=== PATIENT | male | born 1935 | race Caucasian/White ===

== ENCOUNTER 2016-10-01 06:15 | Emergency (ER) | payer MEDICARE ==
[~2016-10-01] VITALS: Ht 188 cm; Wt 91.2 kg
[~2016-10-01 06:15] MED LIST: ASPI1TAB69 PO; CALC-137 PO; CITA20TA4 PO; FOSA70TA PO; HYDR-3583 PO; LIPI10TA PO; MULT-135 PO; PRIL20CA9 PO; VALS160T4 PO; VITA400T14 PO; VITA500T49 PO
[2016-10-01 06:23] VITALS: BP 138/74; PULSE 65; RESP 18; TEMP 98.4; O2SAT 96
[2016-10-01] MEDS ORDERED: CALC500T37 PO (06:42)
--- NOTE | 2016-10-01 07:14 | PD ---
HPI Chief Complaint: Foreign Body Time Seen by Provider: 07:06 Travel History International Travel<30 days: No Contact w/Intl Traveler<30days: No Traveled to known affect area: No History of Present Illness HPI The patient is a 80-year-old male that felt a growth in his throat for a proximally 4 hours. He knows it is not a foreign body, he did not swallow anything. He states the growth is approximately 1 cm in diameter. It is not blocking his airway, it does make him speak somewhat deeper but there is no difficulty breathing or nausea. He denies any fever. He does not have a history of throat cancer, thyroid cancer or other tumors around the neck. He has no trouble swallowing. The patient states he often clears his throat and has done this for years and uses Flonase spray and Hansa pills, this helps seem keep his throat clear. Dr. Owen is his director process engineering and has done normal upper endoscopies on him several times. PFSH Past Medical History Hx Anticoagulant Therapy: Yes (asa) Arthritis: Yes Autoimmune Disease: No Anxiety: Yes Depression: Yes (does not feel depressed now) Heart Rhythm Problems: No Cancer: Yes (CLL) Cardiac Catheterization: Yes (2011) Cardiovascular Problems: Yes High Cholesterol: Yes Chemotherapy: Yes Chest Pain: Yes Congestive Heart Failure: No Cerebrovascular Accident: Yes Diabetes: No Endocrine: No Gastrointestinal Disorders: Yes GERD: Yes Genitourinary: No Hepatitis: No Hiatal Hernia: No Hypertension: Yes Immune Disorder: No Kidney Stones: No Musculoskeletal: Yes Neurologic: No Psychiatric: Yes Reproductive: No Respiratory: No Radiation Therapy: No Renal Failure: No Thyroid Disease: No Ulcer: No Tetanus Vaccination: < 5 Years Influenza Vaccination: Yes Past Surgical History Abdominal Surgery: No AICD: No Arteriovenous Shunt: No Body Medical Devices: NONE Cardiac Surgery: No Ear Surgery: No Endocrine Surgery: No Eye Surgery: Yes (JUDY CATARACT REMOVED , LASIX SURGERY) Genitourinary Surgery: No Gynecologic Surgery: No Insulin Pump: No Joint Replacement: No Oral Surgery: Yes (TONSILLECTOMY/ADENOIDECTOMY) Pacemaker: No Thoracic Surgery: Yes (IMPLANTED PORT INSERTED AND REMOVED) Other Surgery: Yes (BACK SURG' S , LAST ONE 8 YRS AGO) Social History Alcohol Use: Yes (1-2 DRINK A DAY) Tobacco Use: No Substance Use: No Allergies-Medications (Allergen,Severity, Reaction): Coded Allergies: Sulfa (Verified Allergy, Severe, Anaphylaxis, 10/01/16) SWELLING IN HANDS Levaquin (Verified Allergy, Intermediate, SWELLING IN HANDS, 10/01/16) Reported Meds & Prescriptions Reported Meds & Active Scripts Active Reported Calcium Ascorbate 500 Mg Tab 500 Mg PO DAILY Aspirin 81 Mg Tabdr 81 Mg PO DAILY Vitamin D2 (Ergocalciferol) 400 Unit Tab 400 Units PO WEEKLY Vitamin B12 (Cyanocobalamin) 500 Mcg Tab Unknown Dose PO DAILY Citalopram (Citalopram Hydrobromide) 20 Mg Tab 20 Mg PO DAILY Multi Vitamin (Multiple Vitamin) 1 Tab Tab 1 Tab PO DAILY Prilosec (Omeprazole) 20 Mg Cap 40 Mg PO DAILY Valsartan-Hydrochlorothiazide 160-12.5 Mg Tab 1 Tab PO DAILY Hydrocodone-Acetaminophen 10-325 mg Tab 1 Tab PO Q4H PRN Lipitor (Atorvastatin Calcium) 10 Mg Tab 10 Mg PO HS Fosamax (Alendronate Sodium) 70 Mg Tab 70 Mg PO Q7D Review of Systems Except as stated in HPI: all other systems reviewed are Neg Physical Exam Narrative GENERAL: The patient is alert, oriented 3 in no respiratory distress. His vital signs are normal. SKIN: Focused skin assessment warm/dry. HEAD: Atraumatic. Normocephalic. EYES: Pupils equal and round. No scleral icterus. No injection or drainage. ENT: No nasal bleeding or discharge. Mucous membranes pink and moist. The patient's speech is slightly deep. He does not have any stridor in the neck. The throat is clear and the sensation of foreign body appears to be well below the level of the vocal cords. NECK: Trachea midline. No JVD. No stridor. CARDIOVASCULAR: Regular rate and rhythm. No murmur appreciated. RESPIRATORY: No accessory muscle use. Clear to auscultation. Breath sounds equal bilaterally. GASTROINTESTINAL: Abdomen soft, non-tender, nondistended. Hepatic and splenic margins not palpable. MUSCULOSKELETAL: No obvious deformities. No clubbing. No cyanosis. No edema. NEUROLOGICAL: Awake and alert. No obvious cranial nerve deficits. Motor grossly within normal limits. Normal speech. PSYCHIATRIC: Appropriate mood and affect; insight and judgment normal. Data Data Last Documented VS Vital Signs Date Time Temp Pulse Resp B/P Pulse Ox O2 Delivery O2 Flow Rate FiO2 10/01/16 06:23 98.4 65 18 138/[address] Soft Tiss Neck W Iv Cont (10/01/16 07:07) Complete Blood Count With Diff (10/01/16 07:07) Basic Metabolic Panel (Bmp) (10/01/16 07:07) MDM Medical Decision Making Medical Screen Exam Complete: Yes Emergency Medical Condition: Yes Medical Record Reviewed: Yes Differential Diagnosis Tracheal foreign body, esophageal foreign body, laryngitis, vocal cord tumor, epiglottitisextremely unlikely Narrative Course It is now 0713 and the patient is transferred to Dr. Burris. Venancio Mercedes MD October 01, 2016 07:13
[2016-10-01 07:30] VITALS: BP 118/71; PULSE 62; RESP 16; O2SAT 96
[2016-10-01 07:31] LABS: AUTOMATED NEUTROPHIL # 4.6 TH/MM3 (1.8-7.7); BASOPHIL # 0.4 TH/MM3 (0-0.2); BASOPHIL % 0.6 % (0.0-2.0); EOSINOPHIL # 0.1 TH/MM3 (0-0.4); EOSINOPHIL % 0.1 % (0.0-4.0); HEMATOCRIT 36.1 % (39.0-51.0); LYMPHOCYTE # 56.2 TH/MM3 (1.0-4.8); MEAN CELL VOLUME 92.2 FL (80.0-100.0); MEAN CORPUSCULAR HEMOGLOBIN 29.6 PG (27.0-34.0); MEAN CORPUSCULAR HGB CONC 32.2 % (32.0-36.0); MONO % 6.2 % (0.0-8.0); NEUT % 7.1 % (16.0-70.0); PLATELET COUNT 131 TH/MM3 (150-450); RED BLOOD COUNT 3.92 MIL/MM3 (4.50-5.90); WHITE BLOOD COUNT 65.4 TH/MM3 (4.0-11.0)
[2016-10-01 07:34] LABS: HEMO FLAGS AUTO DIFF
[2016-10-01 07:40] LABS: POTASSIUM 4.1 MEQ/L (3.5-5.1)
[2016-10-01 07:43] LABS: BICARBONATE 29.4 MEQ/L (21.0-32.0)
[2016-10-01 07:55] LABS: NEUTROPHIL # MANUAL DIFF 2.6 TH/MM3 (1.8-7.7); POLYS (SEG NEUTROPHILS) 4 % (16-70); WBC DIFF SAMPLE 100
[2016-10-01 07:56] LABS: SCAN/DIFF FINAL DIFF MANUAL; SMUDGE CELLS PRESENT PRESENT
[2016-10-01] MEDS ORDERED: IOHEXOL 350 MG/ML 10 ML VIAL (for RAD DIAG) IV ONE (08:35)
--- NOTE | 2016-10-01 08:49 | RADHPO ---
EXAM DATE/TIME: 10/01/2016 08:16 [facility] COMPARISON: No previous studies available for comparison. INDICATIONS : Feels like something is stuck in throat. IV CONTRAST: 75 cc Omnipaque 350 (iohexol) IV RADIATION DOSE: 12.40 CTDIvol (mGy) MEDICAL HISTORY : Cerebrovascular disease. Hypertension. Leukemia. Anti coagulant therapy. SURGICAL HISTORY : Tonsillectomy. Adenoidectomy. Orthopedic surgery. ENCOUNTER: Initial ACUITY: 1 day PAIN SCALE: 0/10 LOCATION: neck TECHNIQUE: Volumetric scanning of the neck was performed. Using automated exposure control and adjustment of th e mA and/or kV according to patient size, radiation dose was kept as low as reasonably achievable to obtain optimal diagnostic quality images. FINDINGS: NASOPHARYNX: The nasopharyngeal airway has a normal configuration. No mucosal thickening or mass is seen. OROPHARYNX: The intrinsic muscles of the tongue are symmetric. The tonsillar pillars are intact. The prevertebr al soft tissues are not thickened. LARYNX: The supraglottic, glottic, and infraglottic structures are intact. PARAPHARYNGEAL: The parapharyngeal space is intact. SALIVARY GLANDS: The parotid and submandibular glands are intact. LYMPH NODES: Multiple prominent lymph nodes in the neck largest in the left neck posterior to the submandibular gl and measures 2.3 x 1.3 cm. One anterior to the left submandibular gland measures 2.1 x 1.2 cm. One po sterior to the right submandibular gland measures 2.0 x 1.3 cm. Other smaller lymph nodes are seen bi laterally. THYROID: Minimally heterogeneous. Small nodule the left lobe is seen. BONES: Mucosal thickening in the right maxillary sinus and also on the left to a lesser degree. CONCLUSION: 1. Multiple prominent lymph nodes concerning for leukemia/lymphoma. 2. Small nodule left thyroid lobe. Duong Kothari MD on October 01, 2016 at 8:42 Board Certified Radiologist. This report was verified electronically.
[2016-10-01 09:45] VITALS: BP 144/76; PULSE 71; RESP 16; O2SAT 97
--- NOTE | 2016-10-01 09:56 | PD ---
Physical Exam Narrative Received sign out from previous team to follow up CT scan. 80yo M presents with c/o foreign body sensation in throat since 1am this morning. State it woke him up and he denies eating or choking. 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 Pt is not on any chemo or radiation now and follows with oncologist Dr. Lenz. CT neck showed multiple prominent lymph nodes concerning for leukemia/lymphoma. Small nodule left thyroid lobe. Pt has history of leukemia and informed him about the nodule in thyroid. WBC is elevated at 65,400. BMP showed mildly elevated BUN. Discussed with Dr. Lenz who is following him for his CLL and he states that no intervention needed at this time but he needs to follow up with him as outpatient. Pt has an ENT Dr. العلي that he can call to follow up with for endoscopy. Pt is able to tolerate PO and has no trouble breathing. Believe that he is stable to follow up with ENT as outpatient. Return precautions given. Data Data Last Documented VS Vital Signs Date Time Temp Pulse Resp B/P Pulse Ox O2 Delivery O2 Flow Rate FiO2 10/01/16 11:23 67 16 143/74 96 10/01/16 09:45 Room Air 10/01/16 06:[address] Soft Tiss Neck W Iv Cont (10/01/16 07:07) Complete Blood Count With Diff (10/01/16 07:07) Basic Metabolic Panel (Bmp) (10/01/16 07:07) Iohexol 350 Inj (Omnipaque 350 Inj) (10/01/16 08:35) Labs Laboratory Tests Test 10/01/16 07:20 White Blood Count 65.4 TH/MM3 Red Blood Count 3.92 MIL/MM3 Hemoglobin 11.6 GM/DL Hematocrit 36.1 % Mean Corpuscular Volume 92.2 FL Mean Corpuscular Hemoglobin 29.6 PG Mean Corpuscular Hemoglobin 32.2 % Concent Red Cell Distribution Width 14.0 % Platelet Count 131 TH/MM3 Mean Platelet Volume 6.2 FL Neutrophils (%) (Auto) 7.1 % Lymphocytes (%) (Auto) 86.0 % Monocytes (%) (Auto) 6.2 % Eosinophils (%) (Auto) 0.1 % Basophils (%) (Auto) 0.6 % Neutrophils # (Auto) 4.6 TH/MM3 Lymphocytes # (Auto) 56.2 TH/MM3 Monocytes # (Auto) 4.1 TH/MM3 Eosinophils # (Auto) 0.1 TH/MM3 Basophils # (Auto) 0.4 TH/MM3 CBC Comment AUTO DIFF Differential Total Cells 100 Counted Neutrophils % (Manual) 4 % Lymphocytes % 96 % Neutrophils # (Manual) 2.6 TH/MM3 Differential Comment FINAL DIFF MANUAL Smudge Cells PRESENT Sodium Level 141 MEQ/L Potassium Level 4.1 MEQ/L Chloride Level 106 MEQ/L Carbon Dioxide Level 29.4 MEQ/L Anion Gap 6 MEQ/L Blood Urea Nitrogen 25 MG/DL Creatinine 1.10 MG/DL Estimat Glomerular Filtration 65 ML/MIN Rate Random Glucose 100 MG/DL Calcium Level 8.8 MG/DL MDM Supervised Visit with TELMA: No Diagnosis Primary Impression: Foreign body sensation in throat Patient Instructions: General Instructions Departure Forms: Tests/Procedures Additional Instruction: Please follow up with your ENT today or earliest appointment possible. Return to the ED if you have any shortness of breath or difficulty eating. Med/Other Pt SpecificInfo: No Change to Meds Disposition: 01 DISCHARGE HOME Condition: Stable Maria Luz Burris DO October 01, 2016 09:56
[2016-10-01 11:23] VITALS: BP 143/74
[2016-11-01] MEDS ORDERED: PERC5TAB12 PO (17:20)
== END 2016-10-01 11:33 | disposition home or self-care (01) ==
LOC: PHED 06:15
DX: R09.89 Other specified symptoms and signs involving the circulatory and respiratory systems (principal); E04.1 Nontoxic single thyroid nodule; I10 Essential (primary) hypertension; E78.00 Pure hypercholesterolemia, unspecified; Z79.82 Long term (current) use of aspirin; Z85.6 Personal history of leukemia; Z87.39 Personal history of other diseases of the musculoskeletal system and connective tissue; Z86.59 Personal history of other mental and behavioral disorders; Z86.79 Personal history of other diseases of the circulatory system; Z87.19 Personal history of other diseases of the digestive system
CPT/HCPCS: 70491; 80048; 85007; 85027; 99284; Q9967

== ENCOUNTER → 2016-10-14 | Outpatient (CLI) | payer MEDICARE ==
[~2016-10-14] MED LIST changes: +AMBI5TAB PO; +ASPI81CH CHEW; +ATOR1TAB18 PO; -CALC-137 PO; +CALC500T37 PO; +CELE40TA PO; +DILT31TA PO; +HYDR-3535 PO; +MULTTAB67 PO; +PERC5TAB12 PO; +PRED10PA PO; +PRIL20TA2 PO
--- NOTE | 2016-10-14 17:37 | RADRPT ---
EXAM DATE/TIME: 10/14/2016 15:43 [facility] COMPARISON: No previous studies available for comparison. INDICATIONS : Neck and head pain. MEDICAL HISTORY : None. SURGICAL HISTORY : Fusion, lumbar. Discectomy, lumbar. ENCOUNTER: Initial ACUITY: 1 day PAIN SCORE: 6/10 LOCATION: Paraspinal TECHNIQUE: Multiplanar, multisequence MRI examination of the cervical spine was performed. FINDINGS: MRI of the cervical spine was performed. Cerebellar tonsils are in normal anatomic position. Signal intensity in the cord is normal. C2-C3: The thecal sac has a normal configuration. There is no evidence of disc herniation or spinal canal s tenosis. The neural foramina are patent bilaterally. C3-C4: There is radiographically significant spinal stenosis at C3-C4 with interspace ridging flattening the cord with moderate bilateral neural foraminal encroachment much worse on the left than the right. C4-C5: Mild uncinate ridging is present with minimal left-sided neural foraminal encroachment. C5-C6: Mild uncinate ridging is present without significant spinal stenosis or neural foraminal encroachment . C6-C7: Mild uncinate ridging is present with minimal left-sided neural foraminal encroachment. C7-T1: Mild uncinate ridging is present with mild right-sided neural foraminal encroachment. CONCLUSION: Degenerative changes in the cervical spine. There is radiographically significant spinal stenosis at C3-C4 with flattening of the high cervical cord. Signal intensity of the cord remains normal at thi s point. Navid Black MD FACR on October 14, 2016 at 16:11 Board Certified Radiologist. This report was verified electronically.
== END ==
LOC: HRAD 15:22
PROVIDERS: ATTEND Family Medicine
DX: M43.6 Torticollis (principal)
CPT/HCPCS: 72141

== ENCOUNTER → 2016-10-24 | Outpatient (CLI) | payer MEDICARE ==
[~2016-10-24] MED LIST changes: -AMBI5TAB PO; -ATOR1TAB18 PO; -CELE40TA PO; -DILT31TA PO; -HYDR-3535 PO; -PRED10PA PO
[2016-10-24 12:28] LABS: HEMATOCRIT 35.7 % (39.0-51.0); MEAN CELL VOLUME 93.7 FL (80.0-100.0); MEAN CORPUSCULAR HEMOGLOBIN 29.7 PG (27.0-34.0); MEAN CORPUSCULAR HGB CONC 31.7 % (32.0-36.0); PLATELET COUNT 264 TH/MM3 (150-450); RED BLOOD COUNT 3.81 MIL/MM3 (4.50-5.90); RED CELL DISTRIBUTION WIDTH 14.2 % (11.6-17.2); WHITE BLOOD COUNT 118.4 TH/MM3 (4.0-11.0)
[2016-10-24 12:32] LABS: BLOOD, URINE NEG (NEG); COMMENT (UR) CULT NOT INDICATED; CULTURE IF INDICATED CULT NOT INDICATED; GLUCOSE,URINE NEG (NEG); KETONE, URINE NEG (NEG); MUCUS URINE FEW /lpf (OCC); NITRITE,URINE NEG (NEG); PH, URINE 5.5 (5.0-8.5); URINE COLOR YELLOW (YELLW/STRAW)
[2016-10-24 12:36] LABS: HEMO FLAGS AUTO DIFF
[2016-10-24 12:40] LABS: APTT (PATIENT) 30.6 SEC (24.3-30.1); PROTHROMBIN TIME - PATIENT 10.7 SEC (9.8-11.6)
--- NOTE | 2016-10-24 12:41 | RADRPT ---
EXAM DATE/TIME: 10/24/2016 12:23 [facility] COMPARISON: CHEST SINGLE AP, May 24, 2015, 17:10. INDICATIONS : Evaluate for pneumonia, pneumothorax or communicable disease. Pre op neck surgery. MEDICAL HISTORY : None. SURGICAL HISTORY : None. ENCOUNTER: Initial ACUITY: 1 day PAIN SCORE: 0/10 LOCATION: Bilateral chest FINDINGS: The heart and mediastinal contours demonstrate prominence of the aortic knob and ascending aorta sugg esting mild aneurysmal dilation this is stable compared to previous dated 05/24/15. The pulmonary parenchyma demonstrates COPD changes. No suspicious lesions are seen. The visualized bony structures are grossly intact. CONCLUSION: 1. COPD changes. 2. 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 John Black MD on October 24, 2016 at 12:38 Board Certified Radiologist. This report was verified electronically.
[2016-10-24 12:57] LABS: ANION GAP 6 MEQ/L (5-15); AST (GOT) 10 U/L (15-37); BLOOD UREA NITROGEN 36 MG/DL (7-18); CHLORIDE 101 MEQ/L (98-107); GLOMERULAR FILTRATION RATE 39 ML/MIN (>89); GLUCOSE,FASTING 104 MG/DL (74-99); POTASSIUM 4.2 MEQ/L (3.5-5.1); SODIUM (NA) 135 MEQ/L (136-145)
[2016-10-24 12:58] LABS: ALT (GPT) 18 U/L (12-78)
[2016-10-24 13:00] LABS: ALKALINE PHOSPHATASE 125 U/L (45-117); TOTAL BILIRUBIN ADULT 0.5 MG/DL (0.2-1.0)
[2016-10-24 13:04] LABS: EOSINOPHILS 1 % (0-4); NEUTROPHIL # MANUAL DIFF 5.9 TH/MM3 (1.8-7.7); POLYS (SEG NEUTROPHILS) 5 % (16-70); WBC DIFF SAMPLE 200
[2016-10-24 13:06] LABS: SLIDE REVIEW ND; SMUDGE CELLS PRESENT PRESENT
[2016-10-24 13:07] LABS: SCAN/DIFF FINAL DIFF MANUAL
--- NOTE | 2016-10-25 20:01 | EKG ---
Date Performed: 10/24/2016 Time Performed: 12:03:25 PTAGE: 80 years EKG: Sinus rhythm RIGHT BUNDLE BRANCH BLOCK LEFT ANTERIOR FASCICULAR BLOCK ABNORMAL ECG Compared to the PREVIOUS TRACING from 05/20/15, no significant change DOCTOR: Alex Navarro Interpretating Date/Time 10/25/2016 20:00:45
== END ==
LOC: CPRE 11:16
PROVIDERS: ATTEND Neurological Surgery
DX: Z01.810 Encounter for preprocedural cardiovascular examination (principal); M47.12 Other spondylosis with myelopathy, cervical region; M50.30 Other cervical disc degeneration, unspecified cervical region; M48.02 Spinal stenosis, cervical region; R94.31 Abnormal electrocardiogram [ECG] [EKG]; Z01.812 Encounter for preprocedural laboratory examination; Z01.818 Encounter for other preprocedural examination; Z79.01 Long term (current) use of anticoagulants
CPT/HCPCS: 36415; 71020; 80053; 81001; 85007; 85027; 85610; 85730; 93005

== ENCOUNTER 2016-10-27 06:05 | Observation (INO) | payer MEDICARE ==
--- NOTE | 2016-10-26 18:04 | MH ---
cc: BRIGETTE ALVARADO M.D. DATE OF ADMISSION: 10/27/2016 ADMITTING DIAGNOSIS Cervical spinal stenosis. HISTORY OF PRESENT ILLNESS This is a 80-year-old male who is well-known to us. He has previously undergone an L1-L2 and L2-L3 transforaminal interbody fusion with cage and pedicle screw fixation on 05/19/15. He was doing well he states until his neck went out on him on October 08, 2016 and he developed low back pain. The patient states three days later he went to physical therapy and had traction which made his neck pain worse. The neck pain continued to progressively get worse and he had an MRI scan which revealed cervical spinal stenosis. He states when he had the pain initially it was radiating into the upper extremities although he is unsure of the distribution, and he states at this point it has stopped. He denies any paresthesias in the upper extremities. He denies any weakness in the upper extremities. He has felt off balance for the last week although it has been better in the last [id number] days. He denies any increase in urinary frequency and states that he has had urinary frequency on a chronic basis. Prior to his neck pain developing, he had a couple weeks of painful swallowing and went to the emergency room and was referred to Gastroenterology and had endoscopy done and was found to have esophageal Jeni infection. He has undergone treatment for this. PAST MEDICAL HISTORY Past medical history is significant for - 1. Leukemia. 2. Hypertension. 3. Hyperlipidemia. 4. 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 5. He has previously undergone an L1-L2 and L2-L3 transforaminal interbody fusion with cage and pedicle screw fixation on 05/19/15. 6. He has also had previous lumbar spine surgery by Dr. Douglas in 1990. CURRENT MEDICATIONS 1. Calcium with vitamin D p.o. daily. 2. Diovan 40 mg three days a week. 3. Lipitor 10 mg three days a week. 4. Flexeril 10 mg one-half tablet q.6 hours p.r.n. muscle spasms. 5. Percocet 10/325 one-to-two tablets q.8 hours p.r.n. pain. 6. Fluticasone propionate 50 mcg nasal spray two sprays each nostril daily. 7. Citalopram him p.o. daily. ALLERGIES TO MEDICATIONS HE IS ALLERGIC TO SULFA AND LEVAQUIN. FAMILY HISTORY His father is at 89 years old of natural causes. His mother is at 44 years old of a myocardial infarction. A brother is at 21 years old of a motor vehicle accident. Another brother is alive at 60 years old and well. Another brother is at 21 years old of a motor vehicle accident. He has another brother who is alive at 58 years old and has throat cancer. SOCIAL HISTORY He is retired. He is . He has four children two of them are step-children. He does not smoke, he quit in 1986. He drinks 0-2 alcoholic beverages daily. REVIEW OF SYSTEMS CONSTITUTIONAL: He denies any fever or chills. EARS, NOSE AND THROAT: No pharyngitis. Positive for sinus drainage. CARDIOVASCULAR: No chest pain or palpitations. RESPIRATORY: No cough or shortness of breath. GENITOURINARY: No dysuria or hematuria. MUSCULOSKELETAL: Positive for neck pain. SKIN: No rashes or pruritus. NEUROLOGIC: No difficulty with speech or memory. GASTROINTESTINAL: No nausea, vomiting or abdominal pain. PSYCHIATRIC: No anxiety or depression symptoms. ENDOCRINE: No polyuria or polydipsia. HEMATOLOGIC: Positive for bruising. No bleeding tendencies. PHYSICAL EXAMINATION HEAD: Normocephalic, atraumatic. NECK: Supple. No carotid bruits heard on auscultation. LUNGS: Clear to auscultation bilaterally. HEART: Regular, rate and rhythm. Normal S1, S2. ABDOMEN: Soft, positive bowel sounds. SKIN: Reveals no cyanosis or erythema. He had mild ecchymosis on the left forearm. MUSCULOSKELETAL: He has 5/5 strength in the upper and lower extremities. He ambulates without any assistive device. He has a soft cervical collar in place. NEUROLOGIC: He is awake, alert and oriented. Cranial nerves II-XII appear grossly intact. His speech is fluent. Comprehension is good. Reflexes are brisk in the upper and lower extremities. There is no Surendra or clonus response bilaterally. IMPRESSION A 80-year-old male with complaints of neck pain and right occipital headaches radiating down to the forehead and scalp tenderness. 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 PLAN We have discussed treatment options with the patient which include continued conservative treatment measures versus surgical intervention. We have discussed the procedure as well as the risks, benefits, alternatives and recovery time in great detail with the patient. We have discussed the risks involved with surgery include but not limited to bleeding, infection, muscle weakness, voice hoarseness, difficulty swallowing, heart attack, stroke, blood clots, non-fusion, scar tissue formation among others. We have also discussed with the patient and his medical office secretary and primary care physician the risk of infection and healing given his leukemia and his current high white blood cell count. The patient states that he understands these risks and he wishes to proceed and he was therefore scheduled accordingly. DICTATED BY: Duong Bean PA-C MD DOMINIC Vizcarra/ELZBIETA /4:54 PM /5:17 PM
[~2016-10-27] VITALS: Ht 188 cm; Wt 91.4 kg
[~2016-10-27 06:05] MED LIST changes: -ASPI81CH CHEW; -MULTTAB67 PO; -PERC5TAB12 PO; -PRIL20TA2 PO
[2016-10-27] MEDS ORDERED: ACETAMINOPHEN 1000 MG/100 ML VIAL IV ONE (06:29)
[2016-10-27] MEDS ORDERED: KETAMINE HCL 500 MG/5 ML VIAL ONE (06:29)
[2016-10-27] MEDS ORDERED: HYDROmorphone HCL PF 2 MG/ML VIAL ONE (06:29)
[2016-10-27] MEDS ORDERED: CHLORHEXIDINE GLUCONATE 2 % 1 PACK (2 CLOTHS) TOPICAL PRN (06:30)
[2016-10-27] MEDS ORDERED: INSULIN HUMAN REGULAR 1,000 UNITS/10 ML VIAL SQ PRN (06:30)
[2016-10-27] MEDS ORDERED: ceFAZolin 2 GM PREMIX 50 ML IV SCH (06:30)
[2016-10-27] MEDS ORDERED: LACTATED RINGER'S 1000 ML IV PRN (06:30)
[2016-10-27] MEDS ORDERED: SODIUM CHLORID 0.9% 500 ML IV PRN (06:30)
[2016-10-27] MEDS ORDERED: POVIDONE IODINE 5% (ANTISEPSIS KIT) 4 APPLICATIONS EACH NARE PRN (06:30)
[2016-10-27] MEDS ORDERED: METOPROLOL TARTRATE 25 MG TAB PO PRN (06:30)
[2016-10-27] MEDS ORDERED: ASPI81CH CHEW (06:39)
[2016-10-27] MEDS ORDERED: PRIL20TA2 PO (06:39)
[2016-10-27] MEDS ORDERED: MULTTAB67 PO (06:39)
[2016-10-27 06:44] VITALS: BP 111/55; PULSE 81; RESP 16; TEMP 97; O2SAT 96
[2016-10-27] MEDS ORDERED: GELFOAM SIZE 100 ONE (07:15)
[2016-10-27] MEDS ORDERED: THROMBIN (TOPICAL) 5,000 UNIT VIAL ONE (07:15)
[2016-10-27] MEDS ORDERED: BUPIVACAINE/EPINEPHRINE 0.5% PF 30 ML VIAL ONE (07:15)
[2016-10-27] MEDS ORDERED: fentaNYL CITRATE 250 MCG/5 ML AMP ONE (08:07)
[2016-10-27] MEDS ORDERED: FAMOTIDINE 20 MG/2 ML VIAL ONE (08:07)
[2016-10-27] MEDS ORDERED: MIDAZOLAM HCL 2 MG/2 ML VIAL ONE (08:07)
[2016-10-27] MEDS ORDERED: ceFAZolin INJ 1,000 MG VIAL ONE (08:26)
[2016-10-27] MEDS ORDERED: PROPOFOL 200 MG/20 ML AMP IV ONE (10:23)
[2016-10-27] MEDS ORDERED: PHENYLEPH/NS 1000 MCG/10 ML SYR IV ONE (10:24)
[2016-10-27] MEDS ORDERED: NEOSTIGMINE 3 MG/3 ML SYR IV ONE (10:24)
[2016-10-27] MEDS ORDERED: ONDANSETRON HCL 4 MG/2 ML VIAL IV PUSH ONE (10:24)
[2016-10-27] MEDS ORDERED: ePHEDrine/NS 25 MG/5 ML SYR IV ONE (10:24)
[2016-10-27] MEDS ORDERED: NORMOSOL R INJ 1,000 ML IV ONE (10:25)
[2016-10-27] MEDS ORDERED: DO NOT ADM ANY ANTICOAGULANT DRUGS PRN (11:00)
[2016-10-27] MEDS ORDERED: NS + KCL 20 MEQ INJ 1,000 ML IV SCH (11:25)
[2016-10-27] MEDS ORDERED: MORPHINE SULFATE 4 MG/ML INJ IV PRN (11:30)
[2016-10-27] MEDS ORDERED: RESP: ALBUTEROL 2.5 MG/3 ML NEB (PRN) NEB (11:30)
[2016-10-27] MEDS ORDERED: ZOLPIDEM TARTRATE 5 MG TAB PO PRN (11:30)
[2016-10-27] MEDS ORDERED: cloNIDine HCL 0.1 MG TAB PO PRN (11:30)
[2016-10-27] MEDS ORDERED: ALENDRONATE SODIUM 70 MG TAB PO SCH (11:30)
[2016-10-27] MEDS ORDERED: ALUMINUM/MAGNESIUM/SIMETH 30 ML CUP PO PRN (11:30)
[2016-10-27] MEDS ORDERED: NON-FORMULARY DRUG (Valsartan-Hydrochlorothiazide 1 TAB) PO SCH (11:30)
[2016-10-27] MEDS ORDERED: ACETAMINOPHEN/HYDROcodone 325 MG/10 MG TAB PO PRN (11:30)
[2016-10-27] MEDS ORDERED: CYCLOBENZAPRINE HCL 10 MG TAB PO PRN (11:30)
[2016-10-27] MEDS ORDERED: ONDANSETRON HCL 4 MG/2 ML VIAL IV PRN (11:30)
[2016-10-27] MEDS ORDERED: ACETAMINOPHEN 325 MG TAB PO PRN (11:30)
[2016-10-27] MEDS ORDERED: SODIUM CHLORIDE 0.9% FLUSH 10 ML FLUSH IV FLUSH PRN (11:30)
[2016-10-27] MEDS ORDERED: ERGOCALCIFEROL 400 UNIT PO SCH (11:30)
[2016-10-27] MEDS ORDERED: MAGNESIUM HYDROXIDE SUSP 30 ML CUP PO PRN (11:30)
[2016-10-27] MEDS ORDERED: MENTHOL LOZENGE BUCCAL PRN (11:30)
--- NOTE | 2016-10-27 11:30 | PD.OP ---
cc: Jonathan Person MD; Favio Lenz MD Operative Report Date of Surgery: Oct 27, 2016 Preoperative Diagnosis: Neck pain with associated cervical myelopathy from a C3-4 disc osteophyte complex with spinal stenosis and cord compression Postoperative Diagnosis: Same Procedure: Anterior cervical C3-4 microdiscectomy with interbody fusion; anterior C3-4 cervical plate placement; C3-4 interbody cage placement; microsurgical technique Anesthesia: Gen. endotracheal by Slime Padron Surgeon: Matt Rodriguez M.D. Unhairing Machine Operator(s): Margy Perez Operation and Findings: Following administration of general endotracheal anesthesia with the neck maintained neutral position using Lansing collar, the patient received Ancef 2 grams and Decadron 4 mg intravenously. Sequential compression devices were placed in supine position on a Anthony table and all pressure points adequately padded. The head secured in a donut and anterior cervical region then shaved and prepped with Chloraprep and sterilely draped with Ioban along with the usual sterile draping. A transverse skin incision on the left side of the neck was then made after infiltrating the skin with 0.5% Marcaine with epinephrine solution extending down through the platysma. At the anterior border of the sternocleidomastoid further dissection was undertaken developing a plane between the carotid sheath laterally and the trachea esophagus medially. The prevertebral fascia was exposed and dissected out. The medial attachments of the longus colli muscles were detached and a self-retaining retractor used for exposure. The C3-4 disc space was localized with a marking the disc space and using lateral fluoroscopy. [place] distraction screws 14 mm length were placed one in the C3 and one in the C4 body interbody distraction and exposure. There was significant disc degeneration with disc height collapse and anterior osteophytes noted at the C6-7 level and the osteophytes were resected with a Leksell and annulus incised with a 15 blade and further dissection undertaken using microtechnique with microscope magnification. Diskectomy was undertaken with pituitaries and the endplates were also decorticated with curettes and drill bit. And more posteriorly there was disk osteophyte complex compressing the thecal sac along with a significant uncovertebral joint hypertrophy with foraminal stenosis which was decompressed along with removal of the posterior longitudinal ligament. The foramen were decompressed bilaterally using a Kerrison's and palpation with a nerve hook, the exiting nerve roots were felt to be free. The area was then copiously irrigated. I then placed a Peek cage packed with local autograft bone at the C3 -4 interspace under fluoroscopy guidance. [place] distraction pins were removed and the holes plugged with Gelfoam for hemostasis. In order to facilitate the fusion and provide stabilization, a Precision spine cervical plate was then placed with two 14 mm variable angle screws in the C3 body and two 14 mm fixed angle screws in the C4 body. The plate screw locking mechanism was then engaged. AP and lateral fluoroscopy confirmed good placement of the construct and the retractor was then removed. Muscular bleeding points were cauterized with bipolar cautery and Gelfoam was then also used for hemostasis which was removed. The platysma was then approximated using 3-0 Vicryl interrupted stitches and 3-0 Vicryl subcuticular stitch also placed in an interrupted fashion, and final skin closure was with Mastisol and Steri-Strips. Sterile dressing was then applied. The patient was then extubated and taken to the recovery room. There were no intraoperative complications and all sponge and needle counts were correct at the end of procedure. Estimated blood loss was about 50 cc. The patient did undergo intraoperative neurologic monitoring which remained stable throughout the surgery. Matt Rodriguez MD Oct 27, 2016 11:30
--- NOTE | 2016-10-27 11:37 | RADRPT ---
EXAM DATE/TIME: 10/27/2016 08:09 [facility] COMPARISON: No previous studies available for comparison. INDICATIONS : Post-op C3-C4 anterior cervical fusion. MEDICAL HISTORY : None. SURGICAL HISTORY : None. ENCOUNTER: Subsequent ACUITY: 1 day PAIN SCORE: Non-responsive. LOCATION: neck FINDINGS: Status post anterior cervical fusion at C3-C4. Alignment is anatomic. CONCLUSION: Anatomic alignment. Navid Black MD FACR on October 27, 2016 at 11:34 Board Certified Radiologist. This report was verified electronically.
--- NOTE | 2016-10-27 11:37 | RADRPT ---
EXAM DATE/TIME: 10/27/2016 08:09 [facility] COMPARISON: No previous studies available for comparison. INDICATIONS : C3-C4 anterior cervical fusion. Level localization. MEDICAL HISTORY : None. SURGICAL HISTORY : None. ENCOUNTER: Subsequent ACUITY: 1 day PAIN SCORE: Non-responsive. LOCATION: neck FINDINGS: Metallic probe is directed at C3-C4. CONCLUSION: Probe as above. Navid Black MD FACR on October 27, 2016 at 11:35 Board Certified Radiologist. This report was verified electronically.
[2016-10-27] MEDS ORDERED: LACTATED RINGER'S 1000 ML INJ 1,000 ML IV ONE (12:00)
[2016-10-27] MEDS ORDERED: SODIUM CHLORID 0.9% 500 ML INJ 500 ML IV ONE (13:30)
[2016-10-27 13:50] VITALS: BP 96/45; PULSE 81; RESP 18; TEMP 97.2; O2SAT 98
[2016-10-27 20:00] VITALS: BP 103/53; PULSE 82; RESP 18; TEMP 97.2; O2SAT 96
[2016-10-27] MEDS: DOCUSATE SODIUM 100 MG CAP PO SCH (20:24)
[2016-10-27] MEDS ORDERED: ATORVASTATIN 10 MG TAB PO SCH (21:00)
[2016-10-27] MEDS: SODIUM CHLORIDE 0.9% FLUSH 10 ML FLUSH IV FLUSH SCH (21:00)
[2016-10-28] VITALS: BP 113/58; PULSE 79; RESP 18; TEMP 97.9; O2SAT 94
[2016-10-28 04:00] VITALS: BP 117/53; PULSE 75; RESP 16; TEMP 96.3; O2SAT 95
[2016-10-28] MEDS: ACETAMINOPHEN/HYDROcodone 325 MG/10 MG TAB PO PRN ×3 (05:51→15:04)
[2016-10-28 07:14] VITALS: BP 132/75; PULSE 105; RESP 18; TEMP 96.7; O2SAT 98
[2016-10-28] MEDS ORDERED: MULTIVITAMIN TAB PO SCH (09:00)
[2016-10-28] MEDS ORDERED: PANTOPRAZOLE SOD 40 MG DELAYED RELEASE TAB PO SCH (09:00)
[2016-10-28] MEDS ORDERED: HYDROCHLOROTHIAZIDE 12.5 MG CAP PO SCH (09:00)
[2016-10-28] MEDS ORDERED: NON-FORMULARY DRUG (Calcium Ascorbate 500 MG) PO SCH (09:00)
[2016-10-28] MEDS ORDERED: CITALOPRAM HYDROBROMIDE 20 MG TAB PO SCH (09:00)
[2016-10-28] MEDS ORDERED: VALSARTAN 160 MG TAB PO SCH (09:00)
[2016-10-28] MEDS ORDERED: ASPIRIN 81 MG CHEW TAB CHEW SCH (09:00)
[2016-10-28] MEDS: DOCUSATE SODIUM 100 MG CAP PO SCH (09:19)
[2016-10-28] MEDS: SODIUM CHLORIDE 0.9% FLUSH 10 ML FLUSH IV FLUSH SCH (09:21)
--- NOTE | 2016-10-28 10:46 | HHI.NSPN ---
(Duong Arias) History Chief Complaint: Neck pain. (Duong Arias) Interval History 10/28/16: Pt awake and alert. States neck pain improved and now more localized to the right side of his neck but not extending into the head or shoulder. He has voice hoarseness but no pain. He is able to swallow water without difficulty. Pt wants to go home. (Duong Arias) Review of Systems General: Negative for: fever, chills, insomnia Respiratory: Negative for: shortness of breath, cough, sputum Cardiovascular: Negative for: chest pain Gastrointestinal: Negative for: nausea, vomitting, diarrhea, constipation ( Duong Arias) Exam Results Vital Signs Date Time Temp Pulse Resp B/P Pulse Ox O2 Delivery O2 Flow Rate FiO2 10/28/16 07:14 96.7 105 18 132/75 98 10/27/16 13:15 Nasal Cannula 2 Intake and Output 10/27/16 10/27/16 10/28/16 08:00 16:00 00:00 Intake Total 3295 ml 780 ml Output Total 75 ml Balance 3220 ml 780 ml (Duong Arias) Physical Examination Resp: CTA bilaterally Heart: NSR no murmurs Abd: Soft positive bs Skin: No cyanosis or erythema. Incision clean and dry. Mild ecchymosis around incision. No palpable fluid collections Muscle: Moves all 4 extremities well. Neuro: Pt awake and alert. Follows commands well. Speech appropriate but hoarse. (Duong Arias) Lab, Micro, Other Results Last Impressions Cervical Spine X-Ray 10/27/16 0000 Signed Impressions: Service Date/Time: Thursday, October 27, 2016 08:09 - CONCLUSION: Probe as above. Navid Black MD FACR 10/27/16 10/27/16 10/28/16 15:00 23:00 07:00 Intake Total 3295 ml 780 ml 480 ml Output Total 75 ml Balance 3220 ml 780 ml 480 ml Intake Oral 780 ml 480 ml IV Total 1295 ml Other 2000 ml Output Urine Total 25 ml Estimated Blood Loss 50 ml # Voids 1 6 4 # Bowel Movements 0 0 (Duong Arias) Medical Decision Making Impression and Plan A: 80 y/o M s/p C3/C4 anterior cervical fusion with interbody cage and cervical plate placement. P: Discharge pt home per his request. Follow up with me in two weeks for incision check. Follow up with Dr. Lenz and pcp as directed (Duong Arias) Attending Statement The exam, history, and the medical decision-making described in the above note were completed with the assistance of the mid-level provider. I reviewed and agree with the findings presented. I attest that I had a [id number] encounter with the patient on the same day, and personally performed and documented my assessment and findings in the medical record. (Matt Rodriguez MD) Duong Arias Oct 28, 2016 10:46 Matt Rodriguez MD Oct 28, 2016 11:28
[2016-10-28] MEDS ORDERED: HYDR-3583 PO (10:52)
[2016-10-28 11:24] VITALS: BP 95/47; PULSE 71; RESP 18; TEMP 95.8; O2SAT 94
[2016-10-28] MEDS ORDERED: SODIUM CHLORID 0.9% 500 ML INJ 500 ML IV ONE (11:30)
[2016-10-28 15:03] VITALS: BP 121/68
[2016-11-01] MEDS ORDERED: PERC5TAB12 PO (17:20)
== END 2016-10-28 15:39 | disposition home or self-care (01) ==
LOC: HSDC 06:05 → HSDI 11:28 → N06B 13:57
PROVIDERS: ADMIT Neurological Surgery; ATTEND Neurological Surgery
DX: M48.02 Spinal stenosis, cervical region (principal); M50.01 Cervical disc disorder with myelopathy, high cervical region; M25.78 Osteophyte, vertebrae; I10 Essential (primary) hypertension; E78.5 Hyperlipidemia, unspecified; Z88.1 Allergy status to other antibiotic agents; Z88.2 Allergy status to sulfonamides; Z87.891 Personal history of nicotine dependence; Z98.1 Arthrodesis status; Z85.6 Personal history of leukemia; Z92.3 Personal history of irradiation; Z86.73 Personal history of transient ischemic attack (TIA), and cerebral infarction without residual deficits
CPT/HCPCS: 20936; 22551; 22853; 72020; 72040; 76000; 94150; 96360; C1713; G0378; J0131; J0690; J1170; J2250; J2370; J2405; J2710; J3010; J3480; J7040; J7120

== ENCOUNTER 2016-11-15 17:19 | Inpatient (IN) | payer MEDICARE ==
[2016-11-15] VITALS (23 sets, daily range): BP systolic 75–121; BP diastolic 41–73; PULSE 64–160; RESP 13–24; TEMP 97.8–98.1; O2SAT 94–100
[~2016-11-15] VITALS: Ht 188 cm; Wt 87.5 kg
[~2016-11-15 17:19] MED LIST changes: -ASPI1TAB69 PO; +ASPI81CH CHEW; -MULT-135 PO; +MULTTAB67 PO; +PERC5TAB12 PO; -PRIL20CA9 PO; +PRIL20TA2 PO
--- NOTE | 2016-11-15 17:35 | PD ---
HPI . Palpitations Chief Complaint: Cardiac Complaint Time Seen by Provider: 17:26 Travel History International Travel<30 days: No Contact w/Intl Traveler<30days: No History of Present Illness HPI Patient presents with a 2 day history of palpitations. He states that this is been associated with hypotension and profound weakness. No exacerbating or relieving factors. No associated chest pain. No previous similar history. 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) Neurologic: No (TIA 05/2016) Psychiatric: No Reproductive: No Respiratory: No Radiation Therapy: No Renal Failure: No Thyroid Disease: No Ulcer: No Past Surgical History Abdominal Surgery: No AICD: No Arteriovenous Shunt: No Body Medical Devices: NONE Cardiac Surgery: No Ear Surgery: No Endocrine Surgery: No Eye Surgery: Yes (JUDY CATARACT REMOVED , LASIX SURGERY) Genitourinary Surgery: No Gynecologic Surgery: No Insulin Pump: No Joint Replacement: No Oral Surgery: Yes (TONSILLECTOMY/ADENOIDECTOMY) Pacemaker: No Thoracic Surgery: Yes (IMPLANTED PORT INSERTED AND REMOVED) Other Surgery: Yes (BACK SURG' S , LAST ONE 8 YRS AGO) Social History Alcohol Use: Yes (1-2 DRINK A DAY) Tobacco Use: No Substance Use: No Allergies-Medications (Allergen,Severity, Reaction): Coded Allergies: Sulfa (Verified Allergy, Severe, Anaphylaxis, 10/24/16) SWELLING IN HANDS Levaquin (Verified Allergy, Intermediate, SWELLING IN HANDS, 10/24/16) Reported Meds & Prescriptions Reported Meds & Active Scripts Active Hydrocodone-Acetaminophen 10-325 mg Tab 1 Tab PO Q4H PRN Reported Prednisone (21) 10 mg tab Dose Pack (Prednisone) 10 Mg Pack 10 Mg PO DIRECTED Multiple Vitamin 1 Tab 1 Tab PO DAILY Aspirin 81 Mg Chew 81 Mg CHEW DAILY Calcium Ascorbate 500 Mg Tab 500 Mg PO DAILY Vitamin D2 (Ergocalciferol) 400 Unit Tab 400 Units PO WEEKLY Vitamin B12 (Cyanocobalamin) 500 Mcg Tab Unknown Dose PO DAILY Valsartan-Hydrochlorothiazide 160-12.5 Mg Tab 1 Tab PO 3XWEEK ,W,F Lipitor (Atorvastatin Calcium) 10 Mg Tab 10 Mg PO HS M,,F Review of Systems Except as stated in HPI: all other systems reviewed are Neg General / Constitutional: No: Fever, Chills Cardiovascular: Positive: Palpitations, Tachycardia, No: Chest Pain or Discomfort Neurologic: Positive: Weakness, Dizziness Physical Exam Narrative GENERAL: Awake and alert. SKIN: Warm and dry. HEAD: Atraumatic. Normocephalic. EYES: Pupils equal and round. Extraocular movements intact. ENT: No nasal bleeding or discharge. Mucous membranes pink and moist. NECK: Trachea midline. Steri-Strips on the left side of his neck. The wound is clean with no redness, discharge, bleeding. CARDIOVASCULAR: Irregularly irregular rate and rhythm with a rate of about 180. RESPIRATORY: No accessory muscle use. Lungs are clear with good air movement throughout. GASTROINTESTINAL: Abdomen soft, non-tender, nondistended. MUSCULOSKELETAL: No obvious deformities. No edema. NEUROLOGICAL: Awake and alert. No obvious cranial nerve deficits. Motor grossly within normal limits. Normal speech. PSYCHIATRIC: Appropriate mood and affect; insight and judgment normal. Data Data Last Documented VS Vital Signs Date Time Temp Pulse Resp B/P Pulse Ox O2 Delivery O2 Flow Rate FiO2 11/15/16 18:48 68 18 93/50 98 Room Air 11/15/16 17:30 97.8 Orders Ecg Monitoring (11/15/16 17:31) Blood Pressure (11/15/16 17:31) Iv Access Insert/Monitor (11/15/16 17:31) Oximetry (11/15/16 17:31) Vital Signs (11/15/16 17:31) Diltiazem Inj (Cardizem Inj) (11/15/16 17:45) Sodium Chloride 0.9% Flush (Ns Flush) (11/15/16 17:45) Basic Metabolic Panel (Bmp) (11/15/16 17:32) Ckmb (Isoenzyme) Profile (11/15/16 17:32) Complete Blood Count With Diff (11/15/16 17:32) D-Dimer (11/15/16 17:32) Magnesium (Mg) (11/15/16 17:32) Prothrombin Time / Inr (Pt) (11/15/16 17:32) Act Partial Throm Time (Ptt) (11/15/16 17:32) Troponin I (11/15/16 17:32) Chest, Single Ap (11/15/16 17:32) Bilateral Bp Monitoring (11/15/16 17:32) Oxygen Administration (11/15/16 17:32) Sodium Chloride 0.9% Flush (Ns Flush) (11/15/16 17:45) Thyroid Stimulating Hormone (11/15/16 17:32) Sodium Chlor 0.9% 250 Ml Inj (Ns 250 Ml (11/15/16 17:45) Sodium Chlor 0.9% 250 Ml Inj (Ns 250 Ml (11/15/16 18:15) Heparin Infusion BINTA.Q1H (11/15/16 18:18) Heparin Inj (Heparin Inj) (11/15/16 18:30) Heparin Inj (Heparin Inj) (11/16/16 00:30) Heparin Inj (Heparin Inj) (11/16/16 00:30) Heparin-D5w Inj (Heparin-D5w Inj) (11/15/16 18:30) Cbc No Diff, Includes Plts (11/18/16 06:00) Act Partial Throm Time (Ptt) (11/16/16 01:18) Occult Blood (Hemoccult) Stool (11/15/16 18:18) Aspirin Chew (Aspirin Chew) (11/15/16 18:30) Sodium Chlor 0.9% 1000 Ml Inj (Ns 1000 M (11/15/16 18:30) Diltiazem Inj (Cardizem Inj) (11/15/16 19:00) Sodium Chloride 0.9% Flush (Ns Flush) (11/15/16 19:00) Diltiazem Inj (Cardizem Inj) (11/15/16 19:30) Admit To Inpatient (11/15/16 ) Vital Signs (Adult) Q4H (11/15/16 18:56) Activity Oob With Assistance (11/15/16 18:56) Nursing Techn / Telemetry .CONTINUOUS (11/15/16 18:56) Diet Heart Healthy (11/15/16 Dinner) Sodium Chloride 0.9% Flush (Ns Flush) (11/15/16 19:00) Sodium Chloride 0.9% Flush (Ns Flush) (11/15/16 21:00) Acetaminophen (Tylenol) (11/15/16 19:00) Ondansetron Inj (Zofran Inj) (11/15/16 19:00) Basic Metabolic Panel (Bmp) (11/16/16 06:00) Complete Blood Count With Diff (11/16/16 06:00) Troponin I (11/15/16 22:00) Troponin I (11/16/16 04:00) Naloxone Inj (Narcan Inj) (11/15/16 19:00) Docusate Sodium-Senna (María Elena-Colace) (11/15/16 21:00) Magnesium Hydroxide Liq (Milk Of Magnesi (11/15/16 19:00) Sennosides (Senokot) (11/15/16 19:00) Bisacodyl Supp (Dulcolax Supp) (11/15/16 19:00) Lactulose Liq (Lactulose Liq) (11/15/16 19:00) Inpatient Certification (11/15/16 ) Aspirin Ec (Ecotrin Ec) (11/16/16 09:00) Atorvastatin (Lipitor) (11/15/16 19:00) Consult Cardiology (11/15/16 ) Labs Laboratory Tests Test 11/15/16 17:27 White Blood Count 190.6 TH/MM3 Red Blood Count 3.99 MIL/MM3 Hemoglobin 12.6 GM/DL Hematocrit 37.8 % Mean Corpuscular Volume 94.8 FL Mean Corpuscular Hemoglobin 31.5 PG Mean Corpuscular Hemoglobin 33.3 % Concent Red Cell Distribution Width 14.4 % Platelet Count 405 TH/MM3 Mean Platelet Volume 6.5 FL Neutrophils (%) (Auto) % Lymphocytes (%) (Auto) % Monocytes (%) (Auto) % Eosinophils (%) (Auto) % Basophils (%) (Auto) % Neutrophils # (Auto) TH/MM3 Lymphocytes # (Auto) TH/MM3 Monocytes # (Auto) TH/MM3 Eosinophils # (Auto) TH/MM3 Basophils # (Auto) TH/MM3 CBC Comment AUTO DIFF Differential Total Cells 200 Counted Neutrophils % (Manual) 13 % Lymphocytes % 86 % Monocytes % 2 % Neutrophils # (Manual) 24.8 TH/MM3 Differential Comment FINAL DIFF MANUAL Platelet Estimate NORMAL Platelet Morphology Comment NORMAL Prothrombin Time 10.7 SEC Prothromb Time International 1.0 RATIO Ratio Activated Partial 24.8 SEC Thromboplast Time D-Dimer Quantitative (PE/DVT) 0.32 MG/L FEU Sodium Level 143 MEQ/L Potassium Level 3.8 MEQ/L Chloride Level 108 MEQ/L Carbon Dioxide Level 25.1 MEQ/L Anion Gap 10 MEQ/L Blood Urea Nitrogen 42 MG/DL Creatinine 1.40 MG/DL Estimat Glomerular Filtration 49 ML/MIN Rate Random Glucose 104 MG/DL Calcium Level 8.3 MG/DL Magnesium Level 2.5 MG/DL Total Creatine Kinase 30 U/L Troponin I 0.34 NG/ML Thyroid Stimulating Hormone 1.760 uIU/ML 3rd Gen [facility] Medical Decision Making Medical Screen Exam Complete: Yes Emergency Medical Condition: Yes Medical Record Reviewed: Yes (medical history is significant for hypertension, CLL, hyperlipidemia and degenerative cervical and spinal stenosis.) Interpretation(s) EKG shows atrial fibrillation with a ventricular response of 163. Going through his old EKGs, he has not been in atrial fibrillation before. Differential Diagnosis Differential diagnosis of tachycardia includes but is not limited to PSVT, atrial fibrillation with a rapid ventricular response, sinus tachycardia (due to hypovolemia, anemia, thyrotoxicosis, PE) Narrative Course Patient presents with palpitations associated with hypotension and dizziness. He is in atrial fibrillation with a rapid ventricular response. He will be treated initially with Cardizem. The patient quickly converted to a normal sinus rhythm with Cardizem. CBC & BMP Diagram 11/15/16 17:27 CK is 30, troponin is 0.34 and d-dimer is 0.32. I have ordered heparin aspirin. We have paged the hospitalist on-call to have [place] [facility] [place] This patient has been hypotensive since he's been here. So far, he has had 1 L of fluid. Systolic blood pressure currently is 75. I will give him a second liter of fluid. His states that his blood pressure tends to be low. Critical Care Narrative Aggregate critical care time was 45 minutes. Time to perform other separately billable procedures was not included in the critical care time. My time did not include minutes spent treating any other patients simultaneously or on activities that did not directly contribute to the patient's treatment. The services I provided to this patient were to treat and/or prevent clinically significant deterioration due to AF with RVR, NSTEMI, hypotension I provided critical care services requiring my management, as noted below: Chart data review, documentation time, medication orders and management, vital sign assessments/reviewing monitor data, ordering and reviewing lab tests, ordering and interpreting/reviewing x-rays and diagnostic studies, care of the patient and discussion of the patient with the admitting physicians Physician Communication Physician Communication 183: [facility] and director retirement consulted. 190: The patient is being admitted to Dr. Rincon service. Dr. Bello with cardiology will consult. Diagnosis Primary Impression: Atrial fibrillation with rapid ventricular response Additional Impressions: NSTEMI (non-ST elevated myocardial infarction) Hypotension Qualified Code: I95.9 - Hypotension, unspecified hypotension type Admitting Information Admitting Physician Requests: Admit Condition: Carolyne Chiu MD Nov 15, 2016 17:35
[2016-11-15 17:44] LABS: HEMATOCRIT 37.8 % (39.0-51.0); MEAN CELL VOLUME 94.8 FL (80.0-100.0); MEAN CORPUSCULAR HEMOGLOBIN 31.5 PG (27.0-34.0); MEAN CORPUSCULAR HGB CONC 33.3 % (32.0-36.0); PLATELET COUNT 405 TH/MM3 (150-450); RED BLOOD COUNT 3.99 MIL/MM3 (4.50-5.90); RED CELL DISTRIBUTION WIDTH 14.4 % (11.6-17.2)
[2016-11-15] MEDS ORDERED: DILTIAZEM HCL 25 MG/5 ML VIAL IV PUSH ONE ×2 (17:45→19:30)
[2016-11-15] MEDS ORDERED: SODIUM CHLORIDE 0.9% FLUSH 10 ML FLUSH IVF PRN ×3 (17:45→19:00)
[2016-11-15] MEDS ORDERED: SODIUM CHLOR 0.9% 250 ML INJ 250 ML IV ONE ×2 (17:45→18:15)
[2016-11-15 17:55] LABS: POTASSIUM 3.8 MEQ/L (3.5-5.1)
[2016-11-15 17:56] LABS: HEMO FLAGS AUTO DIFF; WHITE BLOOD COUNT 190.6 TH/MM3 (4.0-11.0)
[2016-11-15 17:57] LABS: BICARBONATE 25.1 MEQ/L (21.0-32.0); MAGNESIUM 2.5 MG/DL (1.5-2.5)
[2016-11-15] MEDS ORDERED: PRED10PA PO (17:58)
--- NOTE | 2016-11-15 17:58 | RADRPT ---
EXAM DATE/TIME: 11/15/2016 17:44 [place] COMPARISON: CHEST SINGLE AP, May 24, 2015, 17:10. INDICATIONS : Chest pain. MEDICAL HISTORY : A-fib. SURGICAL HISTORY : None. ENCOUNTER: Initial ACUITY: 1 day PAIN SCORE: 6/10 LOCATION: Bilateral chest FINDINGS: A single view of the chest demonstrates the lungs to be symmetrically aerated without evidence of mas s, infiltrate or effusion. The cardiomediastinal contours are unremarkable. Osseous structures are intact. CONCLUSION: No acute disease. Navid Black MD FACR on November 15, 2016 at 17:52 Board Certified Radiologist. This report was verified electronically.
[2016-11-15 18:05] LABS: APTT (PATIENT) 24.8 SEC (24.3-30.1); PROTHROMBIN TIME - PATIENT 10.7 SEC (9.8-11.6)
[2016-11-15 18:26] LABS: NEUTROPHIL # MANUAL DIFF 24.8 TH/MM3 (1.8-7.7); PLATELET ESTIMATE SMEAR NORMAL (NORMAL); PLATELET MORPHOLOGY NORMAL (NORMAL); POLYS (SEG NEUTROPHILS) 13 % (16-70); WBC DIFF SAMPLE 200
[2016-11-15 18:27] LABS: SCAN/DIFF FINAL DIFF MANUAL
[2016-11-15] MEDS ORDERED: ASPIRIN 81 MG CHEW TAB CHEW ONE (18:30)
[2016-11-15] MEDS ORDERED: HEPARIN SODIUM - IV 10,000 UNITS/10 ML VIAL IV ONE (18:30)
[2016-11-15] MEDS ORDERED: SODIUM CHLOR 0.9% 1000 ML INJ 1,000 ML IV ONE (18:30)
[2016-11-15] MEDS ORDERED: SODIUM CHLORIDE 0.9% FLUSH 10 ML FLUSH IV FLUSH PRN (19:00)
[2016-11-15] MEDS ORDERED: BISACODYL 10 MG SUPP RECTAL PRN (19:00)
[2016-11-15] MEDS ORDERED: NALOXONE HCL 0.4 MG/ML AMP IV PRN (19:00)
[2016-11-15] MEDS ORDERED: ONDANSETRON HCL 4 MG/2 ML VIAL IVP PRN (19:00)
[2016-11-15] MEDS ORDERED: DILTIAZEM INJ 125 MG in SODIUM CHLORIDE 0.9% INJ 100 ML IV SCH (19:00)
[2016-11-15] MEDS ORDERED: ACETAMINOPHEN 325 MG TAB PO PRN (19:00)
[2016-11-15] MEDS ORDERED: LACTULOSE SYRUP 20 GM/30 ML CUP PO PRN (19:00)
[2016-11-15] MEDS ORDERED: SENNOSIDES 8.6 MG TAB PO PRN (19:00)
[2016-11-15] MEDS ORDERED: MAGNESIUM HYDROXIDE SUSP 30 ML CUP PO PRN (19:00)
[2016-11-15] MEDS: HEPARIN-D5W INJ 250 ML IV SCH (19:30)
[2016-11-15] MEDS ORDERED: DILTIAZEM HCL 50 MG/10 ML VIAL IV PUSH ONE (19:30)
[2016-11-15] MEDS ORDERED: ATORVASTATIN 80 MG TAB PO ONE (20:00)
[2016-11-15] MEDS ORDERED: ATORVASTATIN 40 MG TAB PO ONE (20:30)
[2016-11-15] MEDS: DOCUSATE SODIUM 50 MG/SENNA 8.6 MG TAB PO SCH (21:31)
[2016-11-15] MEDS ORDERED: AMBI5TAB PO (21:33)
[2016-11-15] MEDS ORDERED: HYDR-3535 PO (21:37)
[2016-11-15] MEDS: ACETAMINOPHEN/HYDROcodone 325 MG/5 MG TAB PO PRN (21:59)
[2016-11-15] MEDS: ZOLPIDEM TARTRATE 5 MG TAB PO PRN (21:59)
[2016-11-15] MEDS ORDERED: CHLORHEXIDINE GLUCONATE 2 % 1 PACK (2 CLOTHS)(extra cloths) TOPICAL PRN (23:45)
[2016-11-16] VITALS (50 sets, daily range): BP systolic 66–139; BP diastolic 32–77; PULSE 56–158; RESP 10–31; TEMP 97.4–97.9; O2SAT 84–100
[2016-11-16] MEDS: CHLORHEXIDINE GLUCONATE 2 % 1 PACK (2 CLOTHS)(taper/protocol) TOPICAL SCH
[2016-11-16] MEDS ORDERED: HEPARIN SODIUM - IV 10,000 UNITS/10 ML VIAL IV PRN ×2 (00:30)
[2016-11-16] MEDS: SODIUM CHLORIDE 0.9% FLUSH 10 ML FLUSH IV FLUSH SCH ×3 (01:26→20:39)
[2016-11-16] MEDS ORDERED: SODIUM CHLORID 0.9% 500 ML INJ 500 ML IV ONE (01:30)
--- NOTE | 2016-11-16 03:02 | HHI.HP ---
HPI Service [facility] Primary Care Physician Jonathan Person MD Admission Diagnosis AF with RVR, elevated trop, hypotension Diagnoses: Chief Complaint: dizziness, inability to walk, shortness of breath, palpitations Travel History International Travel<30 Days: No Contact w/Intl Traveler <30 Da: No Traveled to Known Affected Are: No History of Present Illness Written by Grace Chacko, acting as scribe for Dr. Dodd on 11/16/16 at 02:56. [place] [facility] [place] He states he came into the hospital because he has been feeling dizzy and unable to walk for two days accompanied by shortness of breath and palpitations - had insomnia also and could only sleep about two hours per night. He says he called Dr. Person who told him to call 911. C3-C4 diskectomy 3 weeks ago Skin lesions on hands - biopsy - not cancer or leukemia 2 weeks ago - on Medrol dosepak for skin lesion Denies fever, blood in urine or stool, cough, n/v/d, or dysuria. The patient reports a history of atrial fibrillation which was followed by Dr. Whittington - on baby aspirin only for anticoagulation . Review of Systems Except as stated in HPI: all other systems reviewed are Neg Past Family Social History Past Medical History Atrial fibrillation Chronic lymphocytic leukemia Hyperlipidemia Hypertension Spinal Osteoarthritis with stenosis Congenital singular kidney . Past Surgical History Bilateral cataract removal Lasik Tonsillectomy and adenoidectomy Port implantation Back surgery Anterior cervical C3-4 microdiscectomy with interbody fusion; anterior C3-4 cervical plate placement; C3-4 interbody cage placement; microsurgical technique by Dr. Contreras October 27, 2016 . Reported Medications Reported Meds & Active Scripts Active Reported Lortab (Hydrocodone-Acetaminophen) 10-325 Mg Tab 1 Tab PO Q6H PRN Ambien (Zolpidem Tartrate) 5 Mg Tab 5 Mg PO HS PRN Prednisone (21) 10 mg tab Dose Pack (Prednisone) 10 Mg Pack 10 Mg PO DIRECTED Multiple Vitamin 1 Tab 1 Tab PO DAILY Aspirin 81 Mg Chew 81 Mg CHEW DAILY Calcium Ascorbate 500 Mg Tab 500 Mg PO DAILY Vitamin D2 (Ergocalciferol) 400 Unit Tab 400 Units PO WEEKLY Vitamin B12 (Cyanocobalamin) 500 Mcg Tab Unknown Dose PO DAILY Valsartan-Hydrochlorothiazide 160-12.5 Mg Tab 1 Tab PO 3XWEEK ,,F Lipitor (Atorvastatin Calcium) 10 Mg Tab 10 Mg PO HS ,, . Allergies: Coded Allergies: Sulfa (Verified Allergy, Severe, Anaphylaxis, 10/24/16) SWELLING IN HANDS Levaquin (Verified Allergy, Intermediate, SWELLING IN HANDS, 10/24/16) Active Ordered Medications Current Medications Diltiazem HCl (Cardizem Inj) 21 mg BOLUS ONCE IV PUSH Last administered on 17:36; Start 11/15/16 at 17:45; Stop 11/15/16 at 17:46; Status DC Sodium Chloride (NS Flush) 2 ml UNSCH PRN IVF FLUSH AFTER USING IV ACCESS Last administered on 11/15/16 17:37; Start 11/15/16 at 17:45; Stop 11/15/16 at 19:12 ; Status DC Sodium Chloride 2 ml 2 ml UNSCH PRN IVF FLUSH AFTER USING IV ACCESS; Start at 17:45; Stop 11/15/16 at 19:12; Status DC Sodium Chloride 250 ml @ 250 mls/hr BOLUS ONCE IV Last administered on 17:46; Start 11/15/16 at 17:45; Stop 11/15/16 at 18:44; Status DC Sodium Chloride (NS 250 ml Inj) 250 ml @ 250 mls/hr BOLUS ONCE IV Last administered on 11/15/16 18:13; Start 11/15/16 at 18:15; Stop 11/15/16 at 19:14 ; Status DC Heparin Sodium (Porcine) (Heparin Inj) 4,000 units ONCE ONCE IV Last administered on 11/15/16 19:31; Start 11/15/16 at 18:30; Stop 11/15/16 at 18:31 ; Status DC Heparin Sodium (Porcine) (Heparin Inj) 5,000 units UNSCH PRN IV APTT LESS THAN 25; Start 11/16/16 at 00:30 Heparin Sodium (Porcine) 2500 units 2,500 units UNSCH PRN IV APTT 25 TO 39; Start 11/16/16 at 00:30 Heparin Sodium/ Dextrose (Heparin-D5W Inj) 250 ml @ 0 mls/hr TITRATE IV Last administered on 11/15/16 19:30; Start 11/15/16 at 18:30 Aspirin 324 mg 324 mg ONCE ONCE CHEW Last administered on 11/15/16 19:31; Start 11/15/16 at 18:30; Stop 11/15/16 at 18:31; Status DC Sodium Chloride 1,000 ml @ 999 mls/hr BOLUS ONCE IV Last administered on 11/15 18:45; Start 11/15/16 at 18:30; Stop 11/15/16 at 19:30; Status DC Diltiazem HCl/ Sodium Chloride (Cardizem Inj/NS Inj) 125 ml @ 0 mls/hr TITRATE IV Last administered on 11/15/16 23:16; Start 11/15/16 at 19:00; Stop at 00:42; Status DC Sodium Chloride (NS Flush) 2 ml UNSCH PRN IVF FLUSH AFTER USING IV ACCESS; Start 11/15/16 at 19:00; Stop 11/15/16 at 19:12; Status DC Diltiazem HCl (Cardizem Inj) 29 mg BOLUS ONCE IV PUSH ; Start 11/15/16 at 19:30 ; Stop 11/15/16 at 19:30; Status DC Sodium Chloride (NS Flush) 2 ml UNSCH PRN IV FLUSH FLUSH AFTER USING IV ACCESS ; Start 11/15/16 at 19:00 Sodium Chloride (NS Flush) 2 ml BID IV FLUSH Last administered on 11/16/16 01: 26; Start 11/15/16 at 21:00 Acetaminophen (Tylenol) 650 mg Q4H PRN PO Fever, headache, pain 1-4; Start at 19:00 Ondansetron HCl (Zofran Inj) 4 mg Q6H PRN IVP NAUSEA OR VOMITING; Start at 19:00 Naloxone HCl (Narcan Inj) 0.4 mg UNSCH PRN IV SEE LABEL COMMENTS; Start at 19:00 Senna/Docusate Sodium (María Elena-Colace) 1 tab BID PO Last administered on 21:31; Start 11/15/16 at 21:00 Magnesium Hydroxide (Milk Of Magnesia Liq) 30 ml Q12H PRN PO MILD - MODERATE CONSTIPATION; Start 11/15/16 at 19:00 Sennosides (Senokot) 17.2 mg Q12H PRN PO MODERATE - SEVERE CONSTIPATION; Start 11/15/16 at 19:00 Bisacodyl (Dulcolax Supp) 10 mg DAILY PRN RECTAL SEVERE CONSITIPATION; Start at 19:00 Lactulose (Lactulose Liq) 30 ml DAILY PRN PO SEVERE CONSITIPATION; Start at 19:00 Aspirin (Ecotrin Ec) 81 mg DAILY PO ; Start 11/16/16 at 09:00 Atorvastatin Calcium (Lipitor) 80 mg ONCE ONCE PO Last administered on 20:00; Start 11/15/16 at 20:00; Stop 11/15/16 at 20:01; Status DC Diltiazem HCl (Cardizem Inj) 29 mg BOLUS ONCE IV PUSH Last administered on 19:36; Start 11/15/16 at 19:30; Stop 11/15/16 at 19:46; Status DC Atorvastatin Calcium (Lipitor) 80 mg ONCE ONCE PO Last administered on 21:08; Start 11/15/16 at 20:30; Stop 11/15/16 at 20:32; Status DC Zolpidem Tartrate (Ambien) 5 mg HS PRN PO insomnia Last administered on 21:59; Start 11/15/16 at 21:45 Acetaminophen/ Hydrocodone Bitart ([place] 5-325 Mg) 1 tab Q6H PRN PO pain >5 Last administered on 11/15/16 21:59; Start 11/15/16 at 21:45 Miscellaneous Information Patient in critical care unit? Ass... Q361D .XX Last administered on 11/15/16 23:45; Start 11/15/16 at 23:45 Chlorhexidine Gluconate (Chlorhexidine 2% Cloth) 3 pack DAILY@04 TOPICAL Last administered on 11/16/16 00:00; Start 11/16/16 at 04:00; Stop 11/20/16 at 04:01 Chlorhexidine Gluconate 3 pack 3 pack UNSCH PRN TOPICAL HYGIENIC CARE; Start at 23:45; Stop 11/20/16 at 23:40 Sodium Chloride (NS 500 ml Inj) 500 ml @ 500 mls/hr BOLUS ONCE IV Last administered on 11/16/16t 01:26; Start 11/16/16 at 01:30; Stop 11/16/16 at 02:29 ; Status DC . Family History Mother [place] at age 44 . Social History Alcohol - 1 or two drinks per day Tobacco - denies Illicit Drugs - denies Lives with and is still driving . Physical Exam Vital Signs Vital Signs Date Time Temp Pulse Resp B/P Pulse Ox O2 Delivery O2 Flow Rate FiO2 11/16/16 02:00 59 11 79/43 95 11/16/16 02:00 59 11/16/16 01:45 60 10 81/45 11/16/16 01:30 60 12 83/48 11/16/16 01:15 61 11 77/42 90 11/16/16 01:00 64 12 66/32 92 11/16/16 00:45 63 12 72/40 89 11/16/16 00:30 63 12 86/47 84 11/16/16 00:16 69 26 96/54 97 11/16/16 00:15 67 17 97 11/16/16 00:01 65 25 92/45 98 11/16/16 00:00 69 11/16/16 00:00 64 17 98 11/15/16 23:45 65 13 97 11/15/16 23:30 67 24 99 11/15/16 23:22 98.1 69 16 116/58 98 11/15/16 22:40 78 20 106/67 97 Nasal Cannula 2 11/15/16 22:00 72 20 106/57 97 Nasal Cannula 2 11/15/16 20:03 95 Nasal Cannula 2 11/15/16 19:57 67 18 115/64 95 11/15/16 19:50 156 20 76/60 94 11/15/16 19:41 74 20 101/58 98 Nasal Cannula 2 11/15/16 19:40 80 20 98 Nasal Cannula 2 11/15/16 19:18 144 20 103/73 98 Nasal Cannula 2 11/15/16 19:00 146 20 99/72 95 11/15/16 18:57 146 20 99/72 95 11/15/16 18:50 156 20 76/60 94 11/15/16 18:48 68 18 93/50 98 Room Air 11/15/16 18:30 68 18 76/47 99 Room Air 11/15/16 18:15 70 18 75/41 98 Room Air 11/15/16 18:00 68 18 76/45 98 Room Air 11/15/16 17:51 72 18 89/59 100 Room Air 91/57 11/15/16 17:49 71 18 102/45 100 Room Air 11/15/16 17:40 74 100 Room Air 11/15/16 17:38 100 Room Air 11/15/16 17:30 97.8 160 20 95/60 100 Physical Exam GENERAL: This is a well-nourished, well-developed patient, in no apparent distress. SKIN: No rashes. Cool and dry. Right hand post-surgical lesions noted, no signs of infection. Left anterior neck incision noted; no signs of infection. HEAD: Atraumatic. Normocephalic. EYES: No scleral icterus. No injection or drainage. ENT: Nose without bleeding, purulent drainage. NECK: Trachea midline. No JVD. CARDIOVASCULAR: Regular rate and rhythm without murmurs, gallops, or rubs. RESPIRATORY: Clear to auscultation. Breath sounds equal bilaterally. No wheezes , rales, or rhonchi. GASTROINTESTINAL: Abdomen soft, non-tender, nondistended. No guarding. MUSCULOSKELETAL: Extremities without clubbing, cyanosis, or edema. No calf tenderness. NEUROLOGICAL: Awake and alert. Motor and sensory grossly within normal limits. Normal speech. . Laboratory Laboratory Tests Test 11/15/16 11/15/16 11/15/16 11/16/16 17:27 22:10 23:15 00:38 White Blood Count 190.6 Red Blood Count 3.99 Hemoglobin 12.6 Hematocrit 37.8 Mean Corpuscular Volume 94.8 Mean Corpuscular Hemoglobin 31.5 Mean Corpuscular Hemoglobin 33.3 Concent Red Cell Distribution Width 14.4 Platelet Count 405 Mean Platelet Volume 6.5 Neutrophils (%) (Auto) Lymphocytes (%) (Auto) Monocytes (%) (Auto) Eosinophils (%) (Auto) Basophils (%) (Auto) Neutrophils # (Auto) Lymphocytes # (Auto) Monocytes # (Auto) Eosinophils # (Auto) Basophils # (Auto) CBC Comment AUTO DIFF Differential Total Cells 200 Counted Neutrophils % (Manual) 13 Lymphocytes % 86 Monocytes % 2 Neutrophils # (Manual) 24.8 Differential Comment FINAL DIFF MANUAL Platelet Estimate NORMAL Platelet Morphology Comment NORMAL Prothrombin Time 10.7 Prothromb Time International 1.0 Ratio Activated Partial 24.8 38.0 Thromboplast Time D-Dimer Quantitative (PE/DVT) 0.32 Sodium Level 143 Potassium Level 3.8 Chloride Level 108 Carbon Dioxide Level 25.1 Anion Gap 10 Blood Urea Nitrogen 42 Creatinine 1.40 Estimat Glomerular Filtration 49 Rate Random Glucose 104 Calcium Level 8.3 Magnesium Level 2.5 Total Creatine Kinase 30 Troponin I 0.34 0.33 Thyroid Stimulating Hormone 1.760 3rd Gen Nasal Screen MRSA (PCR) MRSA NOT DETECTED Result Diagram: 11/15/167 11/15/161726 Imaging Last Impressions Chest X-Ray 11/15/161731 Signed Impressions: Service Date/Time: Sunday, November 15, 2016 17:44 - CONCLUSION: No acute disease. Navid Black MD FACR . Assessment and Plan Assessment and Plan Atrial fibrillation with RVR - Cardizem drip now d/c'd due to hypotension - continuous cardiac telemetry to monitor heart rhythm and rate NSTEMI/troponin I elevation likely secondary to rate - heparin drip - Cardiology consulted - Dr. Whittington' assistance is appreciated\ - serial cardiac enzymes and EKGs to r/o ACS Hypotension likely secondary to Cardizem drip - Cardizem drip on hold - s/p IVF boluses - blood pressure improved with IVF boluses and off cardizem drip Leukocytosis likely secondary to CLL and recent oral steroid use - repeat CBC in a.m.and follow trends in WBC - follows with Dr. Lenz - hematology/content specialist - consult if needed DVT prophylaxis - on heparin drip . Discussed Condition With Patient . Physician Certification 2 Midnight Certification Type: Admission for Inpatient Services Order for Inpatient Services The services are ordered in accordance with Medicare regulations or non- Medicare payer requirements, as applicable. In the case of services not specified as inpatient-only, they are appropriately provided as inpatient services in accordance with the 2-midnight benchmark. Estimated LOS (days): 3 days is the estimated time the patient will need to remain in the hospital, assuming treatment plan goals are met and no additional complications. Post-Hospital Plan: Home Grace Chakco Nov 16, 2016 03:02
[2016-11-16 04:48] LABS: EOSINOPHIL # 0.2 TH/MM3 (0-0.4); EOSINOPHIL % 0.2 % (0.0-4.0); HEMATOCRIT 28.5 % (39.0-51.0); LYMPH % 94.6 % (9.0-44.0); LYMPHOCYTE # 97.2 TH/MM3 (1.0-4.8); MEAN CORPUSCULAR HEMOGLOBIN 29.8 PG (27.0-34.0); MEAN CORPUSCULAR HGB CONC 31.1 % (32.0-36.0); MONO % 1.3 % (0.0-8.0); NEUT % 3.9 % (16.0-70.0); PLATELET COUNT 215 TH/MM3 (150-450); RED BLOOD COUNT 2.96 MIL/MM3 (4.50-5.90); RED CELL DISTRIBUTION WIDTH 15.1 % (11.6-17.2); WHITE BLOOD COUNT 102.7 TH/MM3 (4.0-11.0)
[2016-11-16 04:49] LABS: BICARBONATE 26.6 MEQ/L (21.0-32.0); HEMO FLAGS AUTO DIFF; POTASSIUM 3.4 MEQ/L (3.5-5.1)
[2016-11-16] MEDS: ACETAMINOPHEN/HYDROcodone 325 MG/5 MG TAB PO PRN ×3 (05:45→23:02)
[2016-11-16 05:49] LABS: EOSINOPHILS 1 % (0-4); NEUTROPHIL # MANUAL DIFF 5.1 TH/MM3 (1.8-7.7); POLYS (SEG NEUTROPHILS) 5 % (16-70); SMUDGE CELLS PRESENT PRESENT; WBC DIFF SAMPLE 100
[2016-11-16 05:50] LABS: SCAN/DIFF FINAL DIFF MANUAL
[2016-11-16 05:51] LABS: PLATELET ESTIMATE SMEAR NORMAL (NORMAL); PLATELET MORPHOLOGY NORMAL (NORMAL)
--- NOTE | 2016-11-16 07:55 | EKG ---
Date Performed: 11/15/2016 Time Performed: 19:51:02 PTAGE: 80 years EKG: Sinus rhythm WITH OCCASIONAL VENTRICULAR PREMATURE COMPLEXES WITH OCCASIONAL SUPRAVENTRICULAR PREMATURE COMPLEXES RIGHT BUNDLE BRANCH BLOCK LEFT ANTERIOR FASCICULAR BLOCK ABNORMAL ECG PREVIOUS TRACING : 11/15/2016 17.23 DOCTOR: Isaac Mena Interpretating Date/Time 11/16/2016 07:51:24
--- NOTE | 2016-11-16 07:57 | EKG ---
Date Performed: 11/15/2016 Time Performed: 17:55:14 PTAGE: 80 years EKG: Sinus rhythm WITH OCCASIONAL SUPRAVENTRICULAR PREMATURE COMPLEXES RIGHT BUNDLE BRANCH BLOCK LEFT ANTERIOR FASCICU LAR BLOCK ABNORMAL ECG NO PREVIOUS TRACING DOCTOR: Isaac Mena Interpretating Date/Time 11/16/2016 07:53:39
--- NOTE | 2016-11-16 07:58 | EKG ---
Date Performed: 11/15/2016 Time Performed: 17:23:25 PTAGE: 80 years EKG: ATRIAL FLUTTER/TACHYCARDIA WITH RAPID VENTRICULAR RESPONSE WITH ABERRANT CONDUCTION OR VENT RICULAR PREMATURE COMPLEXES RIGHT BUNDLE BRANCH BLOCK LEFT ANTERIOR FASCICULAR BLOCK ABNORMAL ECG PREVIOUS TRACING : 10/24/2016 12.03 DOCTOR: Isaac Mena Interpretating Date/Time 11/16/2016 07:53:55
[2016-11-16] MEDS: ASPIRIN EC 81 MG TABEC PO SCH (08:47)
[2016-11-16] MEDS: DOCUSATE SODIUM 50 MG/SENNA 8.6 MG TAB PO SCH ×2 (08:47→20:39)
[2016-11-16 08:54] LABS: APTT (PATIENT) 54.9 SEC (24.3-30.1)
[2016-11-16] MEDS ORDERED: POTASSIUM CHLORIDE 10 MEQ CONTROLLED RELEASE TAB PO ONE (09:45)
--- NOTE | 2016-11-16 10:23 | HHI.PR ---
Subjective Remarks Follow-up for atrial fibrillation and elevated troponin Patient denies shortness of breathing, palpitation, chest pain, or lightheadedness/dizziness. He stated about alcohol he did feel palpitations but that resolved quickly. He has no complaints. [employer] electronics wiring technician at the bedside. Objective Vitals Vital Signs Date Time Temp Pulse Resp B/P Pulse Ox O2 Delivery O2 Flow Rate FiO2 11/16/16 08:00 64 11/16/16 06:45 16 11/16/16 06:00 60 11/16/16 06:00 60 15 90/55 96 11/16/16 06:00 96 Room Air 11/16/16 05:53 144 11/16/16 05:46 69 24 103/54 98 11/16/16 05:45 62 13 100 11/16/16 05:30 57 10 87/48 100 11/16/16 05:15 57 10 90/46 100 11/16/16 05:00 57 10 97/54 100 11/16/16 04:45 57 10 82/49 99 11/16/16 04:30 58 11 90/51 100 11/16/16 04:15 56 10 87/52 99 11/16/16 04:00 Nasal Cannula 1.00 11/16/16 04:00 59 11/16/16 04:00 97.8 59 16 92/54 98 11/16/16 03:45 57 11 90/47 100 11/16/16 03:30 61 14 93/54 98 11/16/16 03:16 60 15 92/53 99 11/16/16 03:15 61 13 99 11/16/16 03:00 63 18 101/58 96 11/16/16 02:45 64 27 95/52 89 11/16/16 02:30 60 13 81/47 91 11/16/16 02:15 59 11 79/41 93 11/16/16 02:00 59 11 79/43 95 11/16/16 02:00 59 11 79/43 95 11/16/16 02:00 59 11/16/16 01:45 60 10 81/45 11/16/16 01:30 60 12 83/48 11/16/16 01:15 61 11 77/42 90 11/16/16 01:00 64 12 66/32 92 11/16/16 00:45 63 12 72/40 89 11/16/16 00:30 63 12 86/47 84 11/16/16 00:16 69 26 96/54 97 11/16/16 00:15 67 17 97 11/16/16 00:01 65 25 92/45 98 11/16/16 00:00 Nasal Cannula 2.00 11/16/16 00:00 69 11/16/16 00:00 64 17 98 11/15/16 23:45 65 13 97 11/15/16 23:30 67 24 99 11/15/16 23:22 98.1 69 16 116/58 98 11/15/16 22:40 78 20 106/67 97 Nasal Cannula 2 11/15/16 22:00 72 20 106/57 97 Nasal Cannula 2 11/15/16 20:03 95 Nasal Cannula 2 11/15/16 19:57 67 18 115/64 95 11/15/16 19:50 156 20 76/60 94 11/15/16 19:41 74 20 101/58 98 Nasal Cannula 2 11/15/16 19:40 80 20 98 Nasal Cannula 2 11/15/16 19:18 144 20 103/73 98 Nasal Cannula 2 11/15/16 19:00 146 20 99/72 95 11/15/16 18:57 146 20 99/72 95 11/15/16 18:50 156 20 76/60 94 11/15/16 18:48 68 18 93/50 98 Room Air 11/15/16 18:30 68 18 76/47 99 Room Air 11/15/16 18:15 70 18 75/41 98 Room Air 11/15/16 18:00 68 18 76/45 98 Room Air 11/15/16 17:51 72 18 89/59 100 Room Air 91/57 11/15/16 17:49 71 18 102/45 100 Room Air 11/15/16 17:40 74 100 Room Air 11/15/16 17:38 100 Room Air 11/15/16 17:30 97.8 160 20 95/60 100 I/O 11/15/16 11/15/16 11/15/16 11/16/16 11/16/16 11/16/16 06:59 14:59 22:59 06:59 14:59 22:59 Intake Total 2490 ml 734 ml Output Total 400 ml 200 ml Balance 2090 ml 534 ml Intake Oral 240 ml 120 ml IV Total 2250 ml 614 ml Output Urine Total 400 ml 200 ml # Voids 1 # Bowel Movements 0 Result Diagram: 11/16/16 0356 11/16/16 0356 Objective Remarks GENERAL: in NAD SKIN: Warm and dry. HEAD: Normocephalic. EYES: No scleral icterus. No injection or drainage. NECK: Supple, trachea midline. No JVD or lymphadenopathy. CARDIOVASCULAR: Regular rate and rhythm without murmurs, gallops, or rubs. RESPIRATORY: Breath sounds equal bilaterally. No accessory muscle use. GASTROINTESTINAL: Abdomen soft, non-tender, nondistended. MUSCULOSKELETAL: No cyanosis, or edema. BACK: Nontender without obvious deformity. No CVA tenderness. Medications and IVs Current Medications Diltiazem HCl (Cardizem Inj) 21 mg BOLUS ONCE IV PUSH Last administered on 17:36; Start 11/15/16 at 17:45; Stop 11/15/16 at 17:46; Status DC Sodium Chloride (NS Flush) 2 ml UNSCH PRN IVF FLUSH AFTER USING IV ACCESS Last administered on 11/15/16 17:37; Start 11/15/16 at 17:45; Stop 11/15/16 at 19:12 ; Status DC Sodium Chloride 2 ml 2 ml UNSCH PRN IVF FLUSH AFTER USING IV ACCESS; Start at 17:45; Stop 11/15/16 at 19:12; Status DC Sodium Chloride 250 ml @ 250 mls/hr BOLUS ONCE IV Last administered on 17:46; Start 11/15/16 at 17:45; Stop 11/15/16 at 18:44; Status DC Sodium Chloride (NS 250 ml Inj) 250 ml @ 250 mls/hr BOLUS ONCE IV Last administered on 11/15/16 18:13; Start 11/15/16 at 18:15; Stop 11/15/16 at 19:14 ; Status DC Heparin Sodium (Porcine) (Heparin Inj) 4,000 units ONCE ONCE IV Last administered on 11/15/16 19:31; Start 11/15/16 at 18:30; Stop 11/15/16 at 18:31 ; Status DC Heparin Sodium (Porcine) (Heparin Inj) 5,000 units UNSCH PRN IV APTT LESS THAN 25; Start 11/16/16 at 00:30 Heparin Sodium (Porcine) 2500 units 2,500 units UNSCH PRN IV APTT 25 TO 39; Start 11/16/16 at 00:30 Heparin Sodium/ Dextrose (Heparin-D5W Inj) 250 ml @ 0 mls/hr TITRATE IV Last administered on 11/15/16 19:30; Start 11/15/16 at 18:30 Aspirin 324 mg 324 mg ONCE ONCE CHEW Last administered on 11/15/16 19:31; Start 11/15/16 at 18:30; Stop 11/15/16 at 18:31; Status DC Sodium Chloride 1,000 ml @ 999 mls/hr BOLUS ONCE IV Last administered on 11/15 18:45; Start 11/15/16 at 18:30; Stop 11/15/16 at 19:30; Status DC Diltiazem HCl/ Sodium Chloride (Cardizem Inj/NS Inj) 125 ml @ 0 mls/hr TITRATE IV Last administered on 11/15/16 23:16; Start 11/15/16 at 19:00; Stop at 00:42; Status DC Sodium Chloride (NS Flush) 2 ml UNSCH PRN IVF FLUSH AFTER USING IV ACCESS; Start 11/15/16 at 19:00; Stop 11/15/16 at 19:12; Status DC Diltiazem HCl (Cardizem Inj) 29 mg BOLUS ONCE IV PUSH ; Start 11/15/16 at 19:30 ; Stop 11/15/16 at 19:30; Status DC Sodium Chloride (NS Flush) 2 ml UNSCH PRN IV FLUSH FLUSH AFTER USING IV ACCESS ; Start 11/15/16 at 19:00 Sodium Chloride (NS Flush) 2 ml BID IV FLUSH Last administered on 11/16/16 08: 48; Start 11/15/16 at 21:00 Acetaminophen (Tylenol) 650 mg Q4H PRN PO Fever, headache, pain 1-4; Start at 19:00 Ondansetron HCl (Zofran Inj) 4 mg Q6H PRN IVP NAUSEA OR VOMITING; Start at 19:00 Naloxone HCl (Narcan Inj) 0.4 mg UNSCH PRN IV SEE LABEL COMMENTS; Start at 19:00 Senna/Docusate Sodium (María Elena-Colace) 1 tab BID PO Last administered on 08:47; Start 11/15/16 at 21:00 Magnesium Hydroxide (Milk Of Magnesia Liq) 30 ml Q12H PRN PO MILD - MODERATE CONSTIPATION; Start 11/15/16 at 19:00 Sennosides (Senokot) 17.2 mg Q12H PRN PO MODERATE - SEVERE CONSTIPATION; Start 11/15/16 at 19:00 Bisacodyl (Dulcolax Supp) 10 mg DAILY PRN RECTAL SEVERE CONSITIPATION; Start at 19:00 Lactulose (Lactulose Liq) 30 ml DAILY PRN PO SEVERE CONSITIPATION; Start at 19:00 Aspirin (Ecotrin Ec) 81 mg DAILY PO Last administered on 11/16/16 08:47; Start 11/16/16 at 09:00 Atorvastatin Calcium (Lipitor) 80 mg ONCE ONCE PO Last administered on 20:00; Start 11/15/16 at 20:00; Stop 11/15/16 at 20:01; Status DC Diltiazem HCl (Cardizem Inj) 29 mg BOLUS ONCE IV PUSH Last administered on 19:36; Start 11/15/16 at 19:30; Stop 11/15/16 at 19:46; Status DC Atorvastatin Calcium (Lipitor) 80 mg ONCE ONCE PO Last administered on 21:08; Start 11/15/16 at 20:30; Stop 11/15/16 at 20:32; Status DC Zolpidem Tartrate (Ambien) 5 mg HS PRN PO insomnia Last administered on 21:59; Start 11/15/16 at 21:45 Acetaminophen/ Hydrocodone Bitart ([place] 5-325 Mg) 1 tab Q6H PRN PO pain >5 Last administered on 11/16/16 05:45; Start 11/15/16 at 21:45 Miscellaneous Information Patient in critical care unit? Ass... Q361D .XX Last administered on 11/15/16 23:45; Start 11/15/16 at 23:45 Chlorhexidine Gluconate (Chlorhexidine 2% Cloth) 3 pack DAILY@04 TOPICAL Last administered on 11/16/16 00:00; Start 11/16/16 at 04:00; Stop 11/20/16 at 04:01 Chlorhexidine Gluconate 3 pack 3 pack UNSCH PRN TOPICAL HYGIENIC CARE; Start at 23:45; Stop 11/20/16 at 23:40 Sodium Chloride (NS 500 ml Inj) 500 ml @ 500 mls/hr BOLUS ONCE IV Last administered on 11/16/16 01:26; Start 11/16/16 at 01:30; Stop 11/16/16 at 02:29 ; Status DC Potassium Chloride (KCl) 40 meq ONCE ONCE PO ; Start 11/16/16 at 09:45; Stop at 09:46; Status DC A/P Assessment and Plan Atrial fibrillation with RVR - Cardizem drip now d/c'd due to hypotension - Patient now and sinus rhythm. -Nutritionist consulted and per patient he was seen by substance abuse specialist this morning. Elevated troponin -Most likely secondary to atrial fibrillation with RVR. - Patient on heparin drip, aspirin, nitroglycerin as needed. -Will order lipid profile. -Per patient he was told by substance abuse specialist to have a nuclear stress test done and a possible cardiac catheterization based on results. -Continue with current management. Hypotension likely secondary to Cardizem drip - s/p IVF boluses - Resolved. Leukocytosis likely secondary to CLL and recent oral steroid use - Stable. No signs of infection. Can follow-up as outpatient with Dr. Lenz. DVT prophylaxis - on heparin drip . Discharge Planning Patient will have a nuclear stress test done tomorrow. [place] [facility] [place] [facility]. Balbina Kumar MD Nov 16, 2016 10:23
[2016-11-16 11:05] LABS: HDL CHOLESTEROL 44.2 MG/DL (40.0-60.0)
[2016-11-16] MEDS ORDERED: METOPROLOL TARTRATE 5 MG/5 ML VIAL IV PUSH ONE (11:15)
[2016-11-16] MEDS ORDERED: DILTIAZEM HCL 25 MG/5 ML VIAL IV ONE ×2 (12:00→19:00)
[2016-11-16] MEDS: DILTIAZEM HCL 30 MG TAB PO SCH ×4 (13:45→23:03)
[2016-11-16] MEDS ORDERED: SODIUM CHLOR 0.9% 250 ML INJ 250 ML IV ONE ×2 (14:15→15:45)
[2016-11-16] MEDS: HEPARIN-D5W INJ 250 ML IV SCH (14:21)
[2016-11-16 15:05] LABS: APTT (PATIENT) 53.2 SEC (24.3-30.1)
--- NOTE | 2016-11-16 15:32 | MB ---
cc: ALEX LEE DO DATE OF CONSULTATION: 11/16/2016 REASON FOR CONSULTATION: Atrial fibrillation with rapid ventricular response. HISTORY OF PRESENT ILLNESS Hang Gonzalez is a pleasant 80-year-old male who presented to [facility] emergency room on November 15, 2016 because of shortness of breath, palpitations. He states that this started the other day and he started noticing the palpitations. He denies chest pain with the palpitations. He has been somewhat short of breath. He does feel dizzy and has been noticing that he has been hypotensive. He called Dr. Person office who told him to call . Upon arrival he was found to be in atrial fibrillation with rapid ventricular response. He was given Cardizem IV which converted him back to normal sinus rhythm. After the Cardizem IV his heart rate had normalized but he was noted to be somewhat hypotensive. He has since received fluid boluses which has somewhat normalized his blood pressures. PAST MEDICAL HISTORY 1. Atrial fibrillation 2. Chronic lymphocytic leukemia 3. Hyperlipidemia 4. Hypertension 5. Spinal osteoarthritis with stenosis. 6. Congenital Singular kidney. PAST SURGICAL HISTORY 1. Cardiac catheterization (August 31, 2010 a) left main is normal. LAD gives rise to multiple small diagonals. LAD has 25% stenosis proximal and 20% in the distal third. Left circ is a medium size vessel with no significant disease. RCA is fair to fairly large dominant vessel with up to 10% stenosis in the proximal portion. 2. Anterior cervical C3-C4 a micro diskectomy with interbody fusion, anterior C3-C4 cervical plate placement, C3-C4 interbody cage placement, (October 27, 2016) 3. Bilateral cataract removal. 4. Tonsillectomy and adenoidectomy. 5. Port implantation. 6. Back surgery. ALLERGIES 1. LEVAQUIN 2. SULFA MEDICATIONS 1. Aspirin 81 mg daily 2. Valsartan / hydrochlorothiazide 160 / 12.5 mg three times a week (Sunday, Sunday, Sunday) 3. Prednisone as directed. 4. Ambien 5 mg every night as needed for insomnia. 5. Lipitor 10 mg every night 6. Lortab 10 / 325 mg every 6 hours as needed for pain. FAMILY HISTORY: The mother at the age of 44 from a myocardial infarction. SOCIAL HISTORY The patient drinks one to two drinks per day. Denies alcohol or drug abuse. Currently lives with his at home. REVIEW OF SYSTEMS 14-systems were reviewed including osteopathic pertinent positives and negatives above otherwise negative. PHYSICAL EXAMINATION VITAL SIGNS: Temperature 97.8, heart rate 70, blood pressure 103/54, respirations 18, pulse ox 96% on room air. IN GENERAL: The patient appears well in no acute distress, alert awake and oriented x3. Extraocular muscles intact. Mucous membranes moist. NECK: The neck is supple. No jugular venous distention at 45 degrees. No carotid bruits heard bilaterally. Carotid upstroke is brisk in nature. HEART: Heart is regular rate and rhythm. Positive first and second heart sounds with no murmurs, gallops or rubs. LUNGS: The lungs are clear to auscultation bilaterally, denies any wheezes, rales or rhonchi. ABDOMEN: The abdomen is soft, nontender, nondistended, no organomegaly noted. EXTREMITIES: The extremities show no clubbing, cyanosis or edema. Femoral and distal pulses intact bilaterally. NEUROLOGICALLY: No focal deficits. SKIN: The skins is warm, dry and intact. OSTEOPATHIC: Osteopathic with no kyphoscoliosis, lordosis or paraspinal tender points. LABORATORY FINDINGS White blood cells 102.7, hemoglobin 8.8, hematocrit 28.5, platelets 215. Potassium 3.4, BUN 36, creatinine 1.03, troponin 0.34 decreasing to 0.24. TSH 1.76. Electrocardiogram (November 15, 2016 at 1951) sinus rhythm with occasional PAC, right bundle branch block, left anterior fascicular block. IMPRESSION 1. Atrial fibrillation with rapid ventricular response. 2. Elevated troponin, possibly due to atrial fibrillation with rapid ventricular response as well as hypotension. 3. Relative hypotension possibly due to Cardizem IV as well as drip. 4. Leukocytosis secondary to Chronic lymphocytic leukemia. 5. Premature coronary artery disease, his mother who at the age of 44 from a myocardial infarction. 6. History of hyperlipidemia. 7. History of hypertension. RECOMMENDATIONS 1. Mr. Gonzalez appears to have presented with atrial fibrillation with rapid ventricular response after staying home from what appears to be one to two days. He had no chest pains during these episodes and the electrocardiogram while it has rapid ventricular response, it does not appear to have any acute ST-T wave changes. 2. As far as controlling his heart rate. He has since had one other episodes of rapid ventricular response which was treated with Cardizem IV and he will be placed on Cardizem p.o. q 30 mg q six hours as long as his blood pressure can tolerate it. If he does well on this dose of Cardizem or an elevated dose of this, this can be changed to long-acting before discharge. 3. We will check a 2-D echo to look at his overall left ventricular function, cardiac structure and possible valvoplasties. 4. As far as anticoagulation goes this is somewhat difficult with his hemoglobin being 8.8 down from 12.6 (this is partially felt to be due to rehydration with some dilutional effect), although previously his baseline is normally somewhere around 12 for a hemoglobin. We will also continue to follow this before making further decisions. The other concern with this is that it appears that he might be starting on chemotherapy in the next few weeks depending on his blood work results with his elevated white blood cell count. This can make it difficult if it causes further pancytopenia or anemia. 5. As far as the elevated troponin goes, I feel that this is most likely type 2 in nature due to his rapid ventricular response as well as hypotension while at home. As long as everything is stable we will plan on possible pharmacologic nuclear stress test in the morning. If this is positive. We may have to consider cardiac catheterization on Sunday. 6. He will be NPO after midnight for planned pharmacologic nuclear stress testing. Further recommendations will be made based on the hospital course. Thank you for allowing me to see Hang Gonzalez, if there are any questions please do not hesitate to call. Alex Lee DO VGP/pancho /1:41 PM /3:17 PM MTDHarriet
[2016-11-16] MEDS: SODIUM CHLOR 0.9% 1000 ML INJ 1,000 ML IV SCH (15:45)
--- NOTE | 2016-11-16 17:10 | ECHRPT ---
Indication: Shortness of breath CONCLUSIONS The left ventricular systolic function is low normal with an estimated ejection fraction in the rang e of 50- 55%. Doppler parameters are consistent with impaired left ventricular relaxtion (grade 1 diastolic dysfun ction). Trace mitral valve regurgitation. Trace aortic valve regurgitation. There is trace tricuspid valve regurgitation. BP: / HR: Rhythm: Sinus MEASUREMENTS (Male / Female) Normal Values Technical Quality:Good 2D ECHO LV Diastolic Diameter PLAX 4.7 cm 4.2 - 5.9 / 3.9 - 5.3 cm LV Systolic Diameter PLAX 3.6 cm IVS Diastolic Thickness 1.0 cm 0.6 - 1.0 / 0.6 - 0.9 cm LVPW Diastolic Thickness 0.9 cm 0.6 - 1.0 / 0.6 - 0.9 cm LV Relative Wall Thickness 0.4 RV Internal Dim ED PLAX 2.6 cm LA Systolic Diameter LX 3.5 cm 3.0 - 4.0 / 2.7 - 3.8 cm M-MODE Aortic Root Diameter MM 3.2 cm AV Cusp Separation MM 2.0 cm DOPPLER AV Peak Velocity 180.0 cm/s AV Peak Gradient 13.0 mmHg LVOT Peak Velocity 136.0 cm/s LVOT Peak Gradient 7.4 mmHg Mitral E Point Velocity 55.3 cm/s Mitral A Point Velocity 79.0 cm/s Mitral E to A Ratio 0.7 LV E' Lateral Velocity 8.8 cm/s Mitral E to LV E' Lateral Ratio 6.3 LV E' Septal Velocity 6.3 cm/s Mitral E to LV E' Septal Ratio 8.7 TR Peak Velocity 269.0 cm/s TR Peak Gradient 28.9 mmHg FINDINGS LEFT VENTRICLE Normal left ventricular size. Wall thickness is normal. The left ventricular systolic function is low normal with an estimated ejection fraction in the rang e of 50- 55%. Doppler parameters are consistent with impaired left ventricular relaxtion (grade 1 diastolic dysfun ction). RIGHT VENTRICLE Normal right ventricular size and systolic function. LEFT ATRIUM The left atrial size is normal. RIGHT ATRIUM The right atrial size is mildly dilated. ATRIAL SEPTUM The interatrial septum not well visualized. AORTA The aortic root and proximal ascending aorta are normal in size on limited imaging. MITRAL VALVE Trace mitral valve regurgitation. AORTIC VALVE Trace aortic valve regurgitation. Aortic valve sclerosis is present. TRICUSPID VALVE There is trace tricuspid valve regurgitation. Structurally normal tricuspid valve. PULMONARY VALVE The pulmonary valve is not well visualized. VESSELS The inferior vena cava is normal in size. PERICARDIUM No pericardial effusion. Alex Navarro DO (Electronically Signed) Final Date:16 November 2016 17:09
[2016-11-16] MEDS: ATORVASTATIN 80 MG TAB PO SCH (20:39)
[2016-11-16] MEDS: ZOLPIDEM TARTRATE 5 MG TAB PO PRN (23:02)
[2016-11-17] VITALS (24 sets, daily range): BP systolic 89–151; BP diastolic 44–85; PULSE 62–146; RESP 18–22; TEMP 97.9–98.5; O2SAT 94–99
[2016-11-17] MEDS: CHLORHEXIDINE GLUCONATE 2 % 1 PACK (2 CLOTHS)(taper/protocol) TOPICAL SCH (04:00)
[2016-11-17] MEDS: DILTIAZEM HCL 30 MG TAB PO SCH ×4 (05:15→23:36)
[2016-11-17] MEDS ORDERED: DILTIAZEM HCL 30 MG TAB PO ONE (06:30)
[2016-11-17] MEDS: ACETAMINOPHEN/HYDROcodone 325 MG/5 MG TAB PO PRN ×3 (06:33→21:43)
[2016-11-17 06:37] LABS: APTT (PATIENT) 52.5 SEC (24.3-30.1)
[2016-11-17] MEDS: SODIUM CHLOR 0.9% 1000 ML INJ 1,000 ML IV SCH (08:00)
[2016-11-17] MEDS: ASPIRIN EC 81 MG TABEC PO SCH (08:39)
[2016-11-17] MEDS: DOCUSATE SODIUM 50 MG/SENNA 8.6 MG TAB PO SCH ×2 (08:39→20:43)
[2016-11-17] MEDS: SODIUM CHLORIDE 0.9% FLUSH 10 ML FLUSH IV FLUSH SCH ×2 (08:39→20:43)
--- NOTE | 2016-11-17 11:56 | PD.CARD.PN ---
Subjective Subjective Remarks Episodes of tachyarrhythmia over night, does feel the palpitations when he goes into it No chest pain, no shortness of breath Objective Medications Current Medications Medications (Trade) Dose Ordered Sig/Larry Route Start Time Stop Time Status Last Admin (Heparin Inj) 5,000 units UNSCH PRN IV 11/16/16 00:30 Heparin Sodium (Porcine) 2500 units 2,500 units UNSCH PRN IV 11/16/16 00:30 (Heparin-D5W Inj) 250 ml @ 0 mls/hr TITRATE IV 11/15/16 18:30 11/16/16 14:21 (NS Flush) 2 ml UNSCH PRN IV FLUSH 11/15/16 19:00 (NS Flush) 2 ml BID IV FLUSH 11/15/16 21:00 11/17/16 08:39 (Tylenol) 650 mg Q4H PRN PO 11/15/16 19:00 (Zofran Inj) 4 mg Q6H PRN IVP 11/15/16 19:00 (Narcan Inj) 0.4 mg UNSCH PRN IV 11/15/16 19:00 (María Elena-Colace) 1 tab BID PO 11/15/16 21:00 11/17/16 08:39 (Milk Of Magnesia Liq) 30 ml Q12H PRN PO 11/15/16 19:00 (Senokot) 17.2 mg Q12H PRN PO 11/15/16 19:00 11/16/16 23:05 (Dulcolax Supp) 10 mg DAILY PRN RECTAL 11/15/16 19:00 (Lactulose Liq) 30 ml DAILY PRN PO 11/15/16 19:00 (Ecotrin Ec) 81 mg DAILY PO 11/16/16 09:00 11/17/16 08:39 (Ambien) 5 mg HS PRN PO 11/15/16 21:45 11/16/16 23:02 ([place] 5-325 Mg) 1 tab Q6H PRN PO 11/15/16 21:45 11/17/16 06:33 Miscellaneous Information Patient in critical care unit? Ass... Q361D .XX 11/15/16 23:45 11/15/16 23:45 (Chlorhexidine 2% Cloth) 3 pack DAILY@04 TOPICAL 11/16/16 04:00 7/3/17 04:01 11/16/16 00:00 (Chlorhexidine 2% Cloth) 3 pack UNSCH PRN TOPICAL 11/15/16 23:45 11/20/16 23:40 (Cardizem) 30 mg Q6HR PO 11/16/16 13:45 11/17/16 05:15 Atorvastatin Calcium 80 mg 80 mg HS PO 11/16/16 21:00 11/16/16 20:39 (NS 1000 ml Inj) 1,000 ml @ 70 mls/hr [id number] IV 11/16/16 15:45 11/17/16 08:00 (CeleXA) 40 mg DAILY PO 11/17/16 12:00 Vital Signs / I&O Vital Signs Date Time Temp Pulse Resp B/P Pulse Ox O2 Delivery O2 Flow Rate FiO2 11/17/16 10:00 65 11/17/16 08:00 97 Room Air 11/17/16 08:00 98.3 70 20 121/71 97 11/17/16 08:00 62 11/17/16 08:00 20 11/17/16 07:00 65 11/17/16 06:00 66 11/17/16 05:00 68 11/17/16 04:00 110 11/17/16 03:10 97.9 113 22 151/85 99 11/17/16 03:00 126 11/17/16 02:00 116 11/17/16 01:00 112 11/17/16 00:00 112 11/16/16 23:40 97.7 113 22 139/71 99 11/16/16 23:00 158 11/16/16 22:00 64 11/16/16 21:00 62 11/16/16 20:02 99 Room Air 11/16/16 20:02 97.7 67 22 118/67 99 11/16/16 20:00 62 11/16/16 19:00 66 11/16/16 18:54 88/75 11/16/16 18:53 104/73 11/16/16 18:00 66 11/16/16 16:00 73 11/16/16 16:00 97.8 73 31 105/53 91 11/16/16 15:36 95 Room Air 11/16/16 15:00 61 22 88/50 93 11/16/16 14:00 63 11/16/16 14:00 63 18 90/52 97 11/16/16 13:00 63 28 99/52 96 11/16/16 12:00 145 11/16/16 12:00 97.9 140 16 98/64 98 I/O 11/16/16 11/16/16 11/16/16 11/17/16 11/17/16 11/17/16 07:00 15:00 23:00 07:00 15:00 23:00 Intake Total 734 ml 676 ml 480 ml Output Total 200 ml 600 ml 3200 ml Balance 534 ml 76 ml -2720 ml Intake Oral 120 ml 333 ml 480 ml IV Total 614 ml 343 ml Output Urine Total 200 ml 600 ml 3200 ml # Bowel Movements 0 Physical Exam GENERAL: NAD, AAOx3 SKIN: Warm and dry. HEAD: Atraumatic. Normocephalic. EYES: Pupils equal and round. No scleral icterus. No injection or drainage. ENT: No nasal bleeding or discharge. Mucous membranes pink and moist. NECK: Trachea midline. No JVD. CARDIOVASCULAR: Regular rate and rhythm. 1/6 holosystolic murmur noted at the apex RESPIRATORY: No accessory muscle use. Clear to auscultation. Breath sounds equal bilaterally. GASTROINTESTINAL: Abdomen soft, non-tender, nondistended. Hepatic and splenic margins not palpable. MUSCULOSKELETAL: Extremities without clubbing, cyanosis, or edema. No obvious deformities. NEUROLOGICAL: Awake and alert. No obvious cranial nerve deficits. Motor grossly within normal limits. Five out of 5 muscle strength in the arms and legs. Normal speech. PSYCHIATRIC: Appropriate mood and affect; insight and judgment normal. Laboratory Laboratory Tests Test 11/16/16 11/17/16 14:09 06:12 Activated Partial 53.2 SEC 52.5 SEC Thromboplast Time Assessment and Plan Problem List: (1) Atrial fibrillation and flutter (2) Hypotension (3) NSTEMI (non-ST elevated myocardial infarction) (4) CLL (chronic lymphocytic leukemia) (5) HTN (hypertension) (6) Hyperlipidemia Assessment and Plan 1) Tachyarrhythmia, felt to be atrial flutter Few episodes over night, increased Cardizem to 60mg q6 for now 2) EF 50-55%, stage 1 diastolic dysfunction by echo 3) Elevated troponin felt to be Type 2 in nature Plan pharmacologic nuclear stress test today If stress test is positive, will need to plan cardiac catheterization on Sunday (please make NPO Sunday night) 4) Will currently continue heparin gtt as it is currently 48hrs after elevated trop 5) Will consider anti-coagulation for atrial fib/flutter, but concern with drop in Hgb (labs ordered, not back yet), chemo in the future, and possible combination with anti-platelet medications if stenting is needed Problem Qualifiers (1) Hypotension: Qualified Code: I95.9 - Hypotension, unspecified hypotension type Alex Navarro DO Nov 17, 2016 11:56
[2016-11-17] MEDS ORDERED: CITALOPRAM HYDROBROMIDE 40 MG TAB PO SCH (12:00)
--- NOTE | 2016-11-17 12:02 | HHI.PR ---
Subjective Remarks Follow-up for atrial fibrillation Patient continues to go in and out of atrial fibrillation. Patient is asking to be on his citalopram. He stated that he is on 20 mg of citalopram for many years. He wants an increased dose due to his depression. Patient denies any suicidal or homicidal ideations. Otherwise patient stated that he did have some palpitations last night in which she went back to atrial fibrillation and RVR. Denies any chest pain, shortness of breathing, redness or dizziness. Objective Vitals Vital Signs Date Time Temp Pulse Resp B/P Pulse Ox O2 Delivery O2 Flow Rate FiO2 11/17/16 10:00 65 11/17/16 08:00 97 Room Air 11/17/16 08:00 98.3 70 20 121/71 97 11/17/16 08:00 62 11/17/16 08:00 20 11/17/16 07:00 65 11/17/16 06:00 66 11/17/16 05:00 68 11/17/16 04:00 110 11/17/16 03:10 97.9 113 22 151/85 99 11/17/16 03:00 126 11/17/16 02:00 116 11/17/16 01:00 112 11/17/16 00:00 112 11/16/16 23:40 97.7 113 22 139/71 99 11/16/16 23:00 158 11/16/16 22:00 64 11/16/16 21:00 62 11/16/16 20:02 99 Room Air 11/16/16 20:02 97.7 67 22 118/67 99 11/16/16 20:00 62 11/16/16 19:00 66 11/16/16 18:54 88/75 11/16/16 18:53 104/73 11/16/16 18:00 66 11/16/16 16:00 73 11/16/16 16:00 97.8 73 31 105/53 91 11/16/16 15:36 95 Room Air 11/16/16 15:00 61 22 88/50 93 11/16/16 14:00 63 11/16/16 14:00 63 18 90/52 97 11/16/16 13:00 63 28 99/52 96 I/O 11/16/16 11/16/16 11/16/16 11/17/16/30/17 6/30/17 07:00 15:00 23:00 07:00 15:00 23:00 Intake Total 734 ml 676 ml 480 ml Output Total 200 ml 600 ml 3200 ml Balance 534 ml 76 ml -2720 ml Intake Oral 120 ml 333 ml 480 ml IV Total 614 ml 343 ml Output Urine Total 200 ml 600 ml 3200 ml # Bowel Movements 0 Result Diagram: 11/16/16 0356 11/16/16 0356 Imaging Last Impressions Chest X-Ray 11/15/16 1732 Signed Impressions: Service Date/Time: Tuesday, November 15, 2016 17:44 - CONCLUSION: No acute disease. Navid Black MD FACR Objective Remarks GENERAL: in NAD SKIN: Warm and dry. HEAD: Normocephalic. EYES: No scleral icterus. No injection or drainage. NECK: Supple, trachea midline. No JVD or lymphadenopathy. CARDIOVASCULAR: Regular rate and rhythm without murmurs, gallops, or rubs. RESPIRATORY: Breath sounds equal bilaterally. No accessory muscle use. GASTROINTESTINAL: Abdomen soft, non-tender, nondistended. MUSCULOSKELETAL: No cyanosis, or edema. BACK: Nontender without obvious deformity. No CVA tenderness. Medications and IVs Current Medications Diltiazem HCl (Cardizem Inj) 21 mg BOLUS ONCE IV PUSH Last administered on 17:36; Start 11/15/16 at 17:45; Stop 11/15/16 at 17:46; Status DC Sodium Chloride (NS Flush) 2 ml UNSCH PRN IVF FLUSH AFTER USING IV ACCESS Last administered on 11/15/16 17:37; Start 11/15/16 at 17:45; Stop 11/15/16 at 19:12 ; Status DC Sodium Chloride 2 ml 2 ml UNSCH PRN IVF FLUSH AFTER USING IV ACCESS; Start at 17:45; Stop 11/15/16 at 19:12; Status DC Sodium Chloride 250 ml @ 250 mls/hr BOLUS ONCE IV Last administered on 17:46; Start 11/15/16 at 17:45; Stop 11/15/16 at 18:44; Status DC Sodium Chloride (NS 250 ml Inj) 250 ml @ 250 mls/hr BOLUS ONCE IV Last administered on 11/15/16 18:13; Start 11/15/16 at 18:15; Stop 11/15/16 at 19:14 ; Status DC Heparin Sodium (Porcine) (Heparin Inj) 4,000 units ONCE ONCE IV Last administered on 11/15/16 19:31; Start 11/15/16 at 18:30; Stop 11/15/16 at 18:31 ; Status DC Heparin Sodium (Porcine) (Heparin Inj) 5,000 units UNSCH PRN IV APTT LESS THAN 25; Start 11/16/16 at 00:30 Heparin Sodium (Porcine) 2500 units 2,500 units UNSCH PRN IV APTT 25 TO 39; Start 11/16/16 at 00:30 Heparin Sodium/ Dextrose (Heparin-D5W Inj) 250 ml @ 0 mls/hr TITRATE IV Last administered on 11/16/16 14:21; Start 11/15/16 at 18:30 Aspirin 324 mg 324 mg ONCE ONCE CHEW Last administered on 11/15/16 19:31; Start 11/15/16 at 18:30; Stop 11/15/16 at 18:31; Status DC Sodium Chloride 1,000 ml @ 999 mls/hr BOLUS ONCE IV Last administered on 11/15 18:45; Start 11/15/16 at 18:30; Stop 11/15/16 at 19:30; Status DC Diltiazem HCl/ Sodium Chloride (Cardizem Inj/NS Inj) 125 ml @ 0 mls/hr TITRATE IV Last administered on 11/15/16 23:16; Start 11/15/16 at 19:00; Stop at 00:42; Status DC Sodium Chloride (NS Flush) 2 ml UNSCH PRN IVF FLUSH AFTER USING IV ACCESS; Start 11/15/16 at 19:00; Stop 11/15/16 at 19:12; Status DC Diltiazem HCl (Cardizem Inj) 29 mg BOLUS ONCE IV PUSH ; Start 11/15/16 at 19:30 ; Stop 11/15/16 at 19:30; Status DC Sodium Chloride (NS Flush) 2 ml UNSCH PRN IV FLUSH FLUSH AFTER USING IV ACCESS ; Start 11/15/16 at 19:00 Sodium Chloride (NS Flush) 2 ml BID IV FLUSH Last administered on 11/17/16 08: 39; Start 11/15/16 at 21:00 Acetaminophen (Tylenol) 650 mg Q4H PRN PO Fever, headache, pain 1-4; Start at 19:00 Ondansetron HCl (Zofran Inj) 4 mg Q6H PRN IVP NAUSEA OR VOMITING; Start at 19:00 Naloxone HCl (Narcan Inj) 0.4 mg UNSCH PRN IV SEE LABEL COMMENTS; Start at 19:00 Senna/Docusate Sodium (María Elena-Colace) 1 tab BID PO Last administered on 08:39; Start 11/15/16 at 21:00 Magnesium Hydroxide (Milk Of Magnesia Liq) 30 ml Q12H PRN PO MILD - MODERATE CONSTIPATION; Start 11/15/16 at 19:00 Sennosides (Senokot) 17.2 mg Q12H PRN PO MODERATE - SEVERE CONSTIPATION Last administered on 11/16/16 23:05; Start 11/15/16 at 19:00 Bisacodyl (Dulcolax Supp) 10 mg DAILY PRN RECTAL SEVERE CONSITIPATION; Start at 19:00 Lactulose (Lactulose Liq) 30 ml DAILY PRN PO SEVERE CONSITIPATION; Start at 19:00 Aspirin (Ecotrin Ec) 81 mg DAILY PO Last administered on 11/17/16 08:39; Start 11/16/16 at 09:00 Atorvastatin Calcium (Lipitor) 80 mg ONCE ONCE PO Last administered on 20:00; Start 11/15/16 at 20:00; Stop 11/15/16 at 20:01; Status DC Diltiazem HCl (Cardizem Inj) 29 mg BOLUS ONCE IV PUSH Last administered on 19:36; Start 11/15/16 at 19:30; Stop 11/15/16 at 19:46; Status DC Atorvastatin Calcium (Lipitor) 80 mg ONCE ONCE PO Last administered on 21:08; Start 11/15/16 at 20:30; Stop 11/15/16 at 20:32; Status DC Zolpidem Tartrate (Ambien) 5 mg HS PRN PO insomnia Last administered on 23:02; Start 11/15/16 at 21:45 Acetaminophen/ Hydrocodone Bitart ([place] 5-325 Mg) 1 tab Q6H PRN PO pain >5 Last administered on 11/17/16 06:33; Start 11/15/16 at 21:45 Miscellaneous Information Patient in critical care unit? Ass... Q361D .XX Last administered on 11/15/16 23:45; Start 11/15/16 at 23:45 Chlorhexidine Gluconate (Chlorhexidine 2% Cloth) 3 pack DAILY@04 TOPICAL Last administered on 11/16/16 00:00; Start 11/16/16 at 04:00; Stop 11/20/16 at 04:01 Chlorhexidine Gluconate 3 pack 3 pack UNSCH PRN TOPICAL HYGIENIC CARE; Start at 23:45; Stop 11/20/16 at 23:40 Sodium Chloride (NS 500 ml Inj) 500 ml @ 500 mls/hr BOLUS ONCE IV Last administered on 11/16/16 01:26; Start 11/16/16 at 01:30; Stop 11/16/16 at 02:29 ; Status DC Potassium Chloride (KCl) 40 meq ONCE ONCE PO Last administered on 11/16/16 12 :37; Start 11/16/16 at 09:45; Stop 11/16/16 at 09:46; Status DC Metoprolol Tartrate (Lopressor Inj) 2.5 mg ONCE ONCE IV PUSH Last administered on 11/16/16 12:36; Start 11/16/16 at 11:15; Stop 11/16/16 at 11:16 ; Status DC Diltiazem HCl (Cardizem) 30 mg Q6HR PO Last administered on 11/17/16 05:15; Start 11/16/16 at 13:45; Stop 11/17/16 at 11:45; Status DC Atorvastatin Calcium 80 mg 80 mg HS PO Last administered on 11/16/16 20:39; Start 11/16/16 at 21:00 Sodium Chloride 250 ml @ 999 mls/hr NOW ONCE IV Last administered on 14:14; Start 11/16/16 at 14:15; Stop 11/16/16 at 14:30; Status DC Sodium Chloride 250 ml @ 999 mls/hr NOW ONCE IV Last administered on 15:45; Start 11/16/16 at 15:45; Stop 11/16/16 at 16:00; Status DC Sodium Chloride (NS 1000 ml Inj) 1,000 ml @ 70 mls/hr [id number] IV Last administered on 11/17/16 08:00; Start 11/16/16 at 15:45; Stop 11/17/16 at 11:45 ; Status DC Diltiazem HCl (Cardizem Inj) 20 mg ONCE ONCE IV Last administered on 12:00; Start 11/16/16 at 12:00; Stop 11/16/16 at 16:46; Status DC Diltiazem HCl (Cardizem Inj) 20 mg ONCE ONCE IV Last administered on 23:51; Start 11/16/16 at 19:00; Stop 11/16/16 at 19:03; Status DC Diltiazem HCl (Cardizem) 30 mg NOW ONCE PO Last administered on 11/17/16 06: 33; Start 11/17/16 at 06:30; Stop 11/17/16 at 06:31; Status DC Citalopram Hydrobromide (CeleXA) 40 mg DAILY PO ; Start 11/17/16 at 12:00 Diltiazem HCl (Cardizem) 60 mg Q6HR PO ; Start 11/17/16 at 12:00; Status UNV A/P Assessment and Plan Atrial flutter - Petrophysical Engineer is managing. Petrophysical Engineer felt patient is in flutter not fibrillation. -Patient continues to go in and out of atrial flutter. Cardizem was increased today. Patient scheduled for a nuclear stress test today. If nuclear stress test is positive patient will have to be nothing by mouth Sunday night for cardiac catheterization on Sunday. Elevated troponin -Most likely secondary to atrial flutter - Patient on heparin drip, aspirin, nitroglycerin as needed. -Nuclear stress test ordered today. Hypotension likely secondary to Cardizem drip - s/p IVF boluses - Resolved. Leukocytosis likely secondary to CLL and recent oral steroid use - Stable. No signs of infection. Can follow-up as outpatient with Dr. Lenz. Depression -Patient had been on citalopram 20 mg for many years. He is asking for an increase in dosage due to increased depression. Patient denies any suicidal/ homicidal ideation. Will increase citalopram. Patient educated on side effects of medication. He stated he understood. Patient told any worsening depression, suicidal homicidal ideation to let provider know. Will monitor closely. Anemia -Hemoglobin dropped from 12.6-8.8. No signs of bleeding. Pending hemoglobin from today. DVT prophylaxis - on heparin drip . Discharge Planning Patient needs continual monitoring in the [facility] due to uncontrolled atrial flutter with RVR and will need a nuclear stress test. Balbina Kumar MD Nov 17, 2016 12:02
[2016-11-17 13:17] LABS: AUTOMATED NEUTROPHIL # 6.5 TH/MM3 (1.8-7.7); BASOPHIL # 0.1 TH/MM3 (0-0.2); BASOPHIL % 0.1 % (0.0-2.0); EOSINOPHIL # 0.1 TH/MM3 (0-0.4); EOSINOPHIL % 0.1 % (0.0-4.0); HEMATOCRIT 35.3 % (39.0-51.0); LYMPH % 92.6 % (9.0-44.0); LYMPHOCYTE # 112.1 TH/MM3 (1.0-4.8); MEAN CELL VOLUME 94.7 FL (80.0-100.0); MEAN CORPUSCULAR HEMOGLOBIN 29.1 PG (27.0-34.0); MEAN CORPUSCULAR HGB CONC 30.7 % (32.0-36.0); MONO % 1.8 % (0.0-8.0); NEUT % 5.4 % (16.0-70.0); PLATELET COUNT 241 TH/MM3 (150-450); RED BLOOD COUNT 3.73 MIL/MM3 (4.50-5.90)
[2016-11-17 13:23] LABS: HEMO FLAGS AUTO DIFF
[2016-11-17 13:52] LABS: BICARBONATE 27.3 MEQ/L (21.0-32.0); POTASSIUM 3.8 MEQ/L (3.5-5.1)
[2016-11-17] MEDS ORDERED: REGADENOSON INJ 0.4 MG/5 ML SYR ONE (14:04)
[2016-11-17 14:51] LABS: BANDS 1 % (0-6); NEUTROPHIL # MANUAL DIFF 8.5 TH/MM3 (1.8-7.7); PLATELET ESTIMATE SMEAR NORMAL (NORMAL); PLATELET MORPHOLOGY NORMAL (NORMAL); POLYS (SEG NEUTROPHILS) 6 % (16-70); WBC DIFF SAMPLE 100
[2016-11-17 14:52] LABS: SCAN/DIFF FINAL DIFF MANUAL; SMUDGE CELLS PRESENT PRESENT
--- NOTE | 2016-11-17 15:41 | RADRPT ---
EXAM DATE/TIME: 11/17/2016 13:30 [facility] COMPARISON: No previous studies available for comparison. INDICATIONS : Atrial Fibrillation Abnormal EKG. DOSE: 25.4 mCi Tc99m Myoview at stress. 8.1 mCi Tc99m Myoview at rest. 0.4 mg Lexiscan STRESS SYMPTOMS: None. EJECTION FRACTION: 49% MEDICAL HISTORY : Hypertension. Hypercholesterolemia. SURGICAL HISTORY : Discectomy, lumbar. Cardiac cath ENCOUNTER: Initial ACUITY: 3 days PAIN SCALE: 4/10 LOCATION: shortness of breath TECHNIQUE: The patient underwent pharmacologic stress with infusion of prescribed dose. Continuous ECG tracing was monitored during stress. Gated SPECT imaging was performed after stress and conventional SPECT i maging was performed at rest. The examination was performed on a SPECT/CT scanner, both attenuation and non-corrected datasets were reviewed. FINDINGS: There is intense activity present in the colon which limits evaluation of the posterior basal and inf erior wall territories on both stress and rest acquisitions. DISTRIBUTION: The maximum perfused segment at stress is in the anteroseptal wall. PERFUSION STUDY: Perfusion appears elsewhere homogeneous and intact with no findings to suggest redistribution. GATED STUDY: There is intact wall motion and thickening without hypokinetic or dyskinetic segments. Borderline EF. CONCLUSION: Borderline EF. No definite ischemia. RISK CATEGORY: Intermediate (1-3% Annual Mortality Rate) Gregory Boggs MD on November 17, 2016 at 15:08 Board Certified Radiologist. This report was verified electronically.
[2016-11-17] MEDS ORDERED: DILTIAZEM INJ 125 MG in SODIUM CHLORIDE 0.9% INJ 100 ML IV SCH (17:30)
[2016-11-17] MEDS ORDERED: DILTIAZEM HCL 25 MG/5 ML VIAL IV PUSH ONE (17:30)
[2016-11-17] MEDS: HEPARIN-D5W INJ 250 ML IV SCH (18:58)
[2016-11-17] MEDS: ATORVASTATIN 80 MG TAB PO SCH (20:43)
[2016-11-17] MEDS: ZOLPIDEM TARTRATE 5 MG TAB PO PRN (23:36)
[2016-11-18] VITALS (7 sets, daily range): BP systolic 102–110; BP diastolic 41–70; PULSE 58–113; RESP 16–18; TEMP 97.4–98.5; O2SAT 94–97
[2016-11-18] MEDS: CHLORHEXIDINE GLUCONATE 2 % 1 PACK (2 CLOTHS)(taper/protocol) TOPICAL SCH (00:08)
[2016-11-18 04:44] LABS: HEMATOCRIT 31.2 % (39.0-51.0); MEAN CELL VOLUME 95.1 FL (80.0-100.0); MEAN CORPUSCULAR HGB CONC 31.5 % (32.0-36.0); PLATELET COUNT 202 TH/MM3 (150-450); RED BLOOD COUNT 3.29 MIL/MM3 (4.50-5.90); RED CELL DISTRIBUTION WIDTH 15.1 % (11.6-17.2); WHITE BLOOD COUNT 100.6 TH/MM3 (4.0-11.0)
[2016-11-18 04:53] LABS: APTT (PATIENT) 48.1 SEC (24.3-30.1)
[2016-11-18 05:00] LABS: MAGNESIUM 2.1 MG/DL (1.5-2.5); POTASSIUM 3.7 MEQ/L (3.5-5.1)
[2016-11-18 05:37] LABS: REVIEW FLAG FINAL
[2016-11-18] MEDS: DILTIAZEM HCL 30 MG TAB PO SCH (06:25)
[2016-11-18] MEDS: ACETAMINOPHEN/HYDROcodone 325 MG/5 MG TAB PO PRN (06:36)
--- NOTE | 2016-11-18 09:20 | HHI.PR ---
Subjective Remarks Follow-up for atrial fibrillation No chest pain overnight, had an episode of rapid ventricular rhythm yesterday around 5 PM but now better. No palpitations. Stress test is negative. Objective Vitals Vital Signs Date Time Temp Pulse Resp B/P Pulse Ox O2 Delivery O2 Flow Rate FiO2 11/18/16 08:00 98.5 64 16 102/41 97 11/18/16 05:00 60 11/18/16 04:00 58 11/18/16 04:00 97.4 63 16 110/57 94 11/18/16 03:00 58 11/18/16 02:00 64 11/18/16 01:00 60 11/18/16 00:00 97.9 113 18 106/70 97 11/18/16 00:00 67 11/17/16 23:00 62 11/17/16 22:00 64 11/17/16 21:00 70 11/17/16 20:00 98.1 74 18 104/66 94 11/17/16 20:00 81 11/17/16 19:00 74 11/17/16 19:00 94 102/54 11/17/16 18:45 69 95/44 11/17/16 18:30 71 89/45 11/17/16 18:00 144 11/17/16 17:35 18 11/17/16 17:00 142 11/17/16 16:00 146 11/17/16 16:00 98.5 83 20 130/67 99 11/17/16 16:00 99 Room Air 11/17/16 13:00 70 11/17/16 12:00 68 11/17/16 12:00 98.3 82 20 126/72 99 11/17/16 11:00 74 11/17/16 10:00 65 I/O 11/17/16 11/17/16 11/17/16 11/18/16 11/18/16 11/18/16 07:00 15:00 23:00 07:00 15:00 23:00 Intake Total 480 ml 900 ml 1293 ml Output Total 3200 ml 2400 ml 850 ml Balance -2720 ml -1500 ml 443 ml Intake Oral 480 ml 600 ml 480 ml IV Total 300 ml 813 ml Output Urine Total 3200 ml 2400 ml 850 ml # Bowel Movements 1 0 Result Diagram: 11/18/16 0423 11/18/16 0423 Objective Remarks SKIN: Warm and dry. HEAD: Normocephalic. NECK: Supple, trachea midline. No JVD or lymphadenopathy. CARDIOVASCULAR: Regular rate and rhythm without murmurs, gallops, or rubs. RESPIRATORY: Breath sounds equal bilaterally. No accessory muscle use. GASTROINTESTINAL: Abdomen soft, non-tender, nondistended. MUSCULOSKELETAL: No cyanosis, or edema. BACK: Nontender without obvious deformity. No CVA tenderness. A/P Assessment and Plan Atrial flutter with rapid ventricular response - Auto Camp Attendant is managing. Auto Camp Attendant felt patient is in flutter not fibrillation. Patient received dose of Cardizem IV yesterday. Now heart rate is controlled. Stress test is negative. On heparin. Continue higher dose of Cardizem. Elevated troponin -Most likely secondary to atrial flutter, sit on heparin, nitroglycerin as needed, stress test is negative. Hypotension likely secondary to Cardizem drip - s/p IVF boluses Leukocytosis likely secondary to CLL and recent oral steroid use - Stable. No signs of infection. Can follow-up as outpatient with Dr. Lenz. Depression -Patient had been on citalopram 20 mg for many years. He is asking for an increase in dosage due to increased depression. Patient denies any suicidal/ homicidal ideation. Will increase citalopram. Patient educated on side effects of medication. He stated he understood. Patient told any worsening depression, suicidal homicidal ideation to let provider know. Will monitor closely. Anemia -Hemoglobin dropped from 12.6-8.8. Hemoglobin stable. DVT prophylaxis - on heparin drip, discharge if okay with cardiology. . Discharge Planning Discharge today if okay with cardiology. Jose Chavarria MD Nov 18, 2016 09:20
[2016-11-18] MEDS ORDERED: ATOR1TAB18 PO (09:22)
[2016-11-18] MEDS ORDERED: DILT31TA PO (09:22)
--- NOTE | 2016-11-18 09:31 | PD.CARD.PN ---
Subjective Subjective Remarks The patient denies chest pain, shortness of breath, palpitations, GI symptoms or bleeding. Telemetry shows probable sinus rhythm. Echocardiogram reviewed. Objective Medications Reviewed Vital Signs / I&O Vital Signs Date Time Temp Pulse Resp B/P Pulse Ox O2 Delivery O2 Flow Rate FiO2 11/18/16 08:00 98.5 64 16 102/41 97 11/18/16 05:00 60 11/18/16 04:00 58 11/18/16 04:00 97.4 63 16 110/57 94 11/18/16 03:00 58 11/18/16 02:00 64 11/18/16 01:00 60 11/18/16 00:00 97.9 113 18 106/70 97 11/18/16 00:00 67 11/17/16 23:00 62 11/17/16 22:00 64 11/17/16 21:00 70 11/17/16 20:00 98.1 74 18 104/66 94 11/17/16 20:00 81 11/17/16 19:00 74 11/17/16 19:00 94 102/54 11/17/16 18:45 69 95/44 11/17/16 18:30 71 89/45 11/17/16 18:00 144 11/17/16 17:35 18 11/17/16 17:00 142 11/17/16 16:00 146 11/17/16 16:00 98.5 83 20 130/67 99 11/17/16 16:00 99 Room Air 11/17/16 13:00 70 11/17/16 12:00 68 11/17/16 12:00 98.3 82 20 126/72 99 11/17/16 11:00 74 11/17/16 10:00 65 I/O 11/17/16 11/17/16 11/17/16 11/18/16 11/18/16 11/18/16 07:00 15:00 23:00 07:00 15:00 23:00 Intake Total 480 ml 900 ml 1293 ml Output Total 3200 ml 2400 ml 850 ml Balance -2720 ml -1500 ml 443 ml Intake Oral 480 ml 600 ml 480 ml IV Total 300 ml 813 ml Output Urine Total 3200 ml 2400 ml 850 ml # Bowel Movements 1 0 Physical Exam GENERAL: Well-nourished, well-developed patient in no apparent distress. SKIN: Warm and dry. NECK: JVD normal - less than or equal to 5 cm H20. CARDIOVASCULAR: Regular rate and rhythm without murmurs, gallops, or rubs. RESPIRATORY: Normal breath sounds - equal bilaterally. No accessory muscle use. No wheezes, rales or rubs. PERIPHERY: No cyanosis, or edema. Laboratory Laboratory Tests Test 11/17/16 11/18/16 12:47 04:23 White Blood Count 121.0 TH/MM3 100.6 TH/MM3 Red Blood Count 3.73 MIL/MM3 3.29 MIL/MM3 Hemoglobin 10.8 GM/DL 9.8 GM/DL Hematocrit 35.3 % 31.2 % Mean Corpuscular Volume 94.7 FL 95.1 FL Mean Corpuscular Hemoglobin 29.1 PG 30.0 PG Mean Corpuscular Hemoglobin 30.7 % 31.5 % Concent Red Cell Distribution Width 15.0 % 15.1 % Platelet Count 241 TH/MM3 202 TH/MM3 Mean Platelet Volume 6.6 FL 6.5 FL Neutrophils (%) (Auto) 5.4 % Lymphocytes (%) (Auto) 92.6 % Monocytes (%) (Auto) 1.8 % Eosinophils (%) (Auto) 0.1 % Basophils (%) (Auto) 0.1 % Neutrophils # (Auto) 6.5 TH/MM3 Lymphocytes # (Auto) 112.1 TH/MM3 Monocytes # (Auto) 2.2 TH/MM3 Eosinophils # (Auto) 0.1 TH/MM3 Basophils # (Auto) 0.1 TH/MM3 CBC Comment AUTO DIFF Differential Total Cells 100 Counted Neutrophils % (Manual) 6 % Band Neutrophils % 1 % Lymphocytes % 91 % Monocytes % 2 % Neutrophils # (Manual) 8.5 TH/MM3 Differential Comment FINAL DIFF MANUAL Smudge Cells PRESENT Platelet Estimate NORMAL Platelet Morphology Comment NORMAL Red Cell Morphology Comment NORMAL Sodium Level 142 MEQ/L 143 MEQ/L Potassium Level 3.8 MEQ/L 3.7 MEQ/L Chloride Level 108 MEQ/L 110 MEQ/L Carbon Dioxide Level 27.3 MEQ/L 26.0 MEQ/L Anion Gap 7 MEQ/L 7 MEQ/L Blood Urea Nitrogen 18 MG/DL 15 MG/DL Creatinine 0.96 MG/DL 0.91 MG/DL Estimat Glomerular Filtration 76 ML/MIN 81 ML/MIN Rate Random Glucose 100 MG/DL 90 MG/DL Calcium Level 8.8 MG/DL 8.2 MG/DL Activated Partial 48.1 SEC Thromboplast Time Magnesium Level 2.1 MG/DL Imaging Last 48 hours Impressions Myocardial Perfusion Scan Nuc Med 11/17/16 0800 Signed Impressions: Service Date/Time: Thursday, November 17, 2016 13:30 - CONCLUSION: Borderline EF. No definite ischemia. RISK CATEGORY: Intermediate (1-3%% Annual Mortality Rate) Gregory Boggs MD Assessment and Plan Assessment and Plan Problems: Atrial fibrillation Non-ST elevation OR with negative SPECT nuclear Known CAD Anemia Hypertension Hyperlipidemia Recommendations: Continue present regimen for rate control Baby aspirin. With the anemia he is a poor candidate for anticoagulation and will need to follow-up with his PCP. Low-cholesterol/salt diet. Follow-up with Dr. Whittington for cardiology. I will sign off and the patient can be discharged if stable. Del Bernal MD Nov 18, 2016 09:31
--- NOTE | 2016-11-18 09:36 | HHI.DS ---
Discharge Summary Admission Date Nov 15, 2016 at 19:03 Discharge Date: Nov 18, 2016 Admitting Diagnosis AF with RVR, elevated trop, hypotension (1) CLL (chronic lymphocytic leukemia) ICD Code: C91.10 Diagnosis: Secondary (2) HTN (hypertension) ICD Code: I10 Diagnosis: Secondary (3) Atrial fibrillation and flutter ICD Code: I48.91 Diagnosis: Principal (4) NSTEMI (non-ST elevated myocardial infarction) ICD Code: I21.4 Diagnosis: Secondary Procedures None Brief History - From Admission Written by Grace Chacko, acting as scribe for Dr. Dodd on 11/16/16 at 02:56. The patient is seen in [facility] [place]. He states he came into the hospital because he has been feeling dizzy and unable to walk for two days accompanied by shortness of breath and palpitations - had insomnia also and could only sleep about two hours per night. He says he called Dr. Person who told him to call 911. C3-C4 diskectomy 3 weeks ago Skin lesions on hands - biopsy - not cancer or leukemia 2 weeks ago - on Medrol dosepak for skin lesion Denies fever, blood in urine or stool, cough, n/v/d, or dysuria. The patient reports a history of atrial fibrillation which was followed by Dr. Whittington - on baby aspirin only for anticoagulation . CBC/BMP: 11/18/16 0423 11/18/16 0423 Significant Findings Laboratory Tests Test 11/15/16 11/15/16 11/16/16 11/16/16 17:27 22:10 00:38 03:56 White Blood Count 190.6 TH/MM3 102.7 TH/MM3 (4.0-11.0) (4.0-11.0) Red Blood Count 3.99 MIL/MM3 2.96 MIL/MM3 (4.50-5.90) (4.50-5.90) Hemoglobin 12.6 GM/DL 8.8 GM/DL (13.0-17.0) (13.0-17.0) Hematocrit 37.8 % 28.5 % (39.0-51.0) (39.0-51.0) Mean Platelet Volume 6.5 FL 6.6 FL (7.0-11.0) (7.0-11.0) Neutrophils % (Manual) 13 % (16-70) 5 % (16-70) Lymphocytes % 86 % (9-44) 94 % (9-44) Neutrophils # (Manual) 24.8 TH/MM3 (1.8-7.7) Chloride Level 108 MEQ/L 112 MEQ/L (98-107) (98-107) Blood Urea Nitrogen 42 MG/DL (7-18) 36 MG/DL (7-18) Creatinine 1.40 MG/DL (0.60-1.30) Estimat Glomerular Filtration 49 ML/MIN (>89) 70 ML/MIN (>89) Rate Calcium Level 8.3 MG/DL 7.7 MG/DL (8.5-10.1) (8.5-10.1) Total Creatine Kinase 30 U/L (39-308) Troponin I 0.34 NG/ML 0.33 NG/ML 0.24 NG/ML (0.02-0.05) (0.02-0.05) (0.02-0.05) Activated Partial 38.0 SEC Thromboplast Time (24.3-30.1) Mean Corpuscular Hemoglobin 31.1 % Concent (32.0-36.0) Neutrophils (%) (Auto) 3.9 % (16.0-70.0) Lymphocytes (%) (Auto) 94.6 % (9.0-44.0) Lymphocytes # (Auto) 97.2 TH/MM3 (1.0-4.8) Monocytes # (Auto) 1.3 TH/MM3 (0-0.9) Potassium Level 3.4 MEQ/L (3.5-5.1) Test 11/16/16 11/16/16 11/17/16 11/17/16 08:17 14:09 06:12 12:47 Activated Partial 54.9 SEC 53.2 SEC 52.5 SEC Thromboplast Time (24.3-30.1) (24.3-30.1) (24.3-30.1) White Blood Count 121.0 TH/MM3 (4.0-11.0) Red Blood Count 3.73 MIL/MM3 (4.50-5.90) Hemoglobin 10.8 GM/DL (13.0-17.0) Hematocrit 35.3 % (39.0-51.0) Mean Corpuscular Hemoglobin 30.7 % Concent (32.0-36.0) Mean Platelet Volume 6.6 FL (7.0-11.0) Neutrophils (%) (Auto) 5.4 % (16.0-70.0) Lymphocytes (%) (Auto) 92.6 % (9.0-44.0) Lymphocytes # (Auto) 112.1 TH/MM3 (1.0-4.8) Monocytes # (Auto) 2.2 TH/MM3 (0-0.9) Neutrophils % (Manual) 6 % (16-70) Lymphocytes % 91 % (9-44) Neutrophils # (Manual) 8.5 TH/MM3 (1.8-7.7) Chloride Level 108 MEQ/L (98-107) Estimat Glomerular Filtration 76 ML/MIN (>89) Rate Test 11/18/16 04:23 White Blood Count 100.6 TH/MM3 (4.0-11.0) Red Blood Count 3.29 MIL/MM3 (4.50-5.90) Hemoglobin 9.8 GM/DL (13.0-17.0) Hematocrit 31.2 % (39.0-51.0) Mean Corpuscular Hemoglobin 31.5 % Concent (32.0-36.0) Mean Platelet Volume 6.5 FL (7.0-11.0) Activated Partial 48.1 SEC Thromboplast Time (24.3-30.1) Chloride Level 110 MEQ/L (98-107) Estimat Glomerular Filtration 81 ML/MIN (>89) Rate Calcium Level 8.2 MG/DL (8.5-10.1) PE at Discharge SKIN: Warm and dry. HEAD: Normocephalic. NECK: Supple, trachea midline. No JVD or lymphadenopathy. CARDIOVASCULAR: Regular rate and rhythm without murmurs, gallops, or rubs. RESPIRATORY: Breath sounds equal bilaterally. No accessory muscle use. GASTROINTESTINAL: Abdomen soft, non-tender, nondistended. MUSCULOSKELETAL: No cyanosis, or edema. BACK: Nontender without obvious deformity. No CVA tenderness. Hospital Course This is a 80-year-old male who presented with atrial flutter with rapid ventricular response. Cardiology was consulted. Patient was started on Cardizem intravenously which was then switched to oral. A nuclear stress test was done and was negative. It was mild troponin elevation which was thought to be secondary to demand ischemia. Again stress test was negative. Patient was cleared by cardiology for discharge to follow-up with cardiology in one week. Patient will be discharged on Cardizem orally, dose was increased accordingly. Patient will follow up with hematology as outpatient for CLL. Continue citalopram for depression, patient requests a dose increase. Patient will follow-up with primary care physician for this. Pt Condition on Discharge: Good Discharge Disposition: Discharge Home Discharge Time: > 30 minutes Discharge Instructions DIET: Follow Instructions for: Heart Healthy Diet Activities you can perform: Regular-No Restrictions Follow up Referrals: Cardiology - 1 Week New Medications: Atorvastatin (Atorvastatin) 80 Mg Tab 80 MG PO HS cholesterol #30 TAB Diltiazem (Cardizem) 30 Mg Tab 60 MG PO Q6HR afib #240 TAB Continued Medications: Aspirin (Aspirin) 81 Mg Chew 81 MG CHEW DAILY Ref 0 TAB Atorvastatin (Lipitor) 10 Mg Tab 10 MG PO HS M,W,F Cholesterol Management #30 Ref 0 TAB Calcium Ascorbate (Calcium Ascorbate) 500 Mg Tab 500 MG PO DAILY Calcium Supplement Ref 0 TAB Cyanocobalamin (Vitamin B12) 500 Mcg Tab Unknown Dose PO DAILY #1 BOTTLE Ergocalciferol (Vitamin D2) 400 Unit Tab 400 UNITS PO WEEKLY Nutritional Supplement Ref 0 TAB Hydrocodone-Acetaminophen (Lortab) 10-325 Mg Tab 1 TAB PO Q6H PRN PAIN Ref 0 TAB Multiple Vitamin (Multiple Vitamin) 1 Tab 1 TAB PO DAILY Nutritional Supplement Ref 0 TAB Prednisone (21) 10 mg tab Dose Pack (Prednisone (21) 10 mg tab Dose Pack) 10 Mg Pack 10 MG PO DIRECTED Inflammation #1 Ref 0 DSPK Valsartan-Hydrochlorothiazide (Valsartan-Hydrochlorothiazide) 160-12.5 Mg Tab 1 TAB PO 3XWEEK M,W,F Blood Pressure Management #30 Ref 0 TAB Zolpidem (Ambien) 5 Mg Tab 5 MG PO HS PRN INSOMNIA Ref 0 TAB Jose Chavarria MD Nov 18, 2016 09:36
[2016-11-18] MEDS ORDERED: CELE40TA PO (09:37)
== END 2016-11-18 11:35 | disposition home or self-care (01) | DRG 281 ==
LOC: PHED 17:19 → PHEDA 19:03 → HIMW 23:10 → HCIS 11-16 17:43
PROVIDERS: ADMIT Hospitalist; ATTEND Hospitalist
DX: I48.91 Unspecified atrial fibrillation (principal); I21.4 Non-ST elevation (NSTEMI) myocardial infarction; C91.10 Chronic lymphocytic leukemia of B-cell type not having achieved remission; Q60.0 Renal agenesis, unilateral; I10 Essential (primary) hypertension; I48.92 Unspecified atrial flutter; I45.2 Bifascicular block; M48.00 Spinal stenosis, site unspecified; I95.2 Hypotension due to drugs; T46.1X5A Adverse effect of calcium-channel blockers, initial encounter; E78.5 Hyperlipidemia, unspecified; G47.00 Insomnia, unspecified; F32.9 Major depressive disorder, single episode, unspecified; D64.9 Anemia, unspecified; I25.10 Atherosclerotic heart disease of native coronary artery without angina pectoris; Z98.1 Arthrodesis status; Z79.82 Long term (current) use of aspirin
CPT/HCPCS: 36415; 71010; 76937; 78452; 80048; 80061; 82232; 82550; 83735; 84443; 84484; 85007; 85027; 85379; 85610; 85730; 87641; 93005; 93017; 93306; 96374; A9502; J1644; J2785; J7030; J7040; J7050

== ENCOUNTER 2017-01-15 14:06 | Day surgery (SDC) | payer MEDICARE ==
[~2017-01-15 14:06] MED LIST changes: +ALEN1TAB48 PO; +AMBI5TAB PO; +APIX5TAB PO; +ATOR1TAB18 PO; +CELE40TA PO; -CITA20TA4 PO; +DILT31TA PO; +DIOV160T6 PO; -FOSA70TA PO; +HYDR-3535 PO; -HYDR-3583 PO; -PERC5TAB12 PO; +PRED10PA PO; -PRIL20TA2 PO
[2017-01-15] MEDS ORDERED: IOHEXOL 300 MG/ML 50 ML BTL (for RAD DIAG) OTHER ONE (14:07)
[2017-01-15 14:28] VITALS: BP 100/58; PULSE 63; RESP 18; O2SAT 95
[2017-01-15] MEDS ORDERED: TRIAMCINOLONE ACETONIDE 40 MG/ML VIAL ONE (15:17)
[2017-01-15 16:15] VITALS: BP 100/60; PULSE 64; RESP 18; O2SAT 95
--- NOTE | 2017-01-15 17:01 | RADRPT ---
EXAM DATE/TIME: 01/15/2017 15:26 [facility] COMPARISON: No previous studies available for comparison. INDICATIONS : Patient presents with chronic back pain in need of facet injections for pain management. 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 Contreras October 27, 2016 ENCOUNTER: Subsequent ACUITY: >1 year PAIN SCORE: 5/10 LOCATION: Bilateral Back FLUORO TIME: 3.9 minutes IMAGE SERIES: 2 CONTRAST: 1 cc Omnipaque (iohexol) 300 ACCESS LEVEL: Left L4-L5 MEDICATION(S): 1.) 0.5 cc triamcinolone (Kenalog) IA 2.) 0.5 cc Lidocaine IA RESPONSE: Pre procedure pain level was 5/10. Post procedure pain level was 1/10. PROCEDURE : Fluoroscopically guided facet injection. The risks, benefits and alternatives to the procedure were explained and verbal and written consent w as obtained. The site was prepped in sterile fashion. Full sterile technique was used, including ca p, mask, sterile gloves and gown and a large sterile sheet. Hand hygiene and 2% chlorhexidine and/or betadine/alcohol prep was utilized per protocol for cutaneous antisepsis. The skin and subcutaneous tissues were infiltrated with local anesthetic solution. With fluoroscopic guidance the targeted facet was localized and positive contrast was injected to con firm intra-articular position. The prescribed medications were injected into the facet joint. The pat ient's pre and post procedure pain levels were recorded. CONCLUSION: Uncomplicated fluoroscopically guided facet injection as above. Jonathan Hollingsworth MD on January 15, 2017 at 17:00 Board Certified Radiologist. This report was verified electronically.
--- NOTE | 2017-01-15 17:01 | RADRPT ---
EXAM DATE/TIME: 01/15/2017 15:26 [facility] COMPARISON: No previous studies available for comparison. INDICATIONS : Patient presents with chronic back pain in need of facet injections for pain management. 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 Contreras October 27, 2016 ENCOUNTER: Subsequent ACUITY: >1 year PAIN SCORE: 5/10 LOCATION: Bilateral Back FLUORO TIME: 3.9 minutes IMAGE SERIES: 2 CONTRAST: 1 cc Omnipaque (iohexol) 300 ACCESS LEVEL: Left L3-L4 MEDICATION(S): 1.) 0.5 cc triamcinolone (Kenalog) IA 2.) 0.5 cc Lidocaine IA RESPONSE: Pre procedure pain level was 5/10. Post procedure pain level was 1/10. PROCEDURE : Fluoroscopically guided facet injection. The risks, benefits and alternatives to the procedure were explained and verbal and written consent w as obtained. The site was prepped in sterile fashion. Full sterile technique was used, including ca p, mask, sterile gloves and gown and a large sterile sheet. Hand hygiene and 2% chlorhexidine and/or betadine/alcohol prep was utilized per protocol for cutaneous antisepsis. The skin and subcutaneous tissues were infiltrated with local anesthetic solution. With fluoroscopic guidance the targeted facet was localized and positive contrast was injected to con firm intra-articular position. The prescribed medications were injected into the facet joint. The pat ient's pre and post procedure pain levels were recorded. CONCLUSION: Uncomplicated fluoroscopically guided facet injection as above. Jonathan Hollingsworth MD on January 15, 2017 at 16:59 Board Certified Radiologist. This report was verified electronically.
--- NOTE | 2017-01-15 17:01 | RADRPT ---
EXAM DATE/TIME: 01/15/2017 15:26 [facility] COMPARISON: No previous studies available for comparison. INDICATIONS : Patient presents with chronic back pain in need of facet injections for pain management. 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 Contreras October 27, 2016 ENCOUNTER: Subsequent ACUITY: >1 year PAIN SCORE: 5/10 LOCATION: Bilateral Back FLUORO TIME: 3.9 minutes IMAGE SERIES: 2 CONTRAST: 1 cc Omnipaque (iohexol) 300 ACCESS LEVEL: Right L3-L4 MEDICATION(S): 1.) 0.5 cc triamcinolone (Kenalog) IA 2.) 0.5 cc triamcinolone (Kenalog) IA RESPONSE: Pre procedure pain level was 5/10. Post procedure pain level was 1/108. PROCEDURE : Fluoroscopically guided facet injection. The risks, benefits and alternatives to the procedure were explained and verbal and written consent w as obtained. The site was prepped in sterile fashion. Full sterile technique was used, including ca p, mask, sterile gloves and gown and a large sterile sheet. Hand hygiene and 2% chlorhexidine and/or betadine/alcohol prep was utilized per protocol for cutaneous antisepsis. The skin and subcutaneous tissues were infiltrated with local anesthetic solution. With fluoroscopic guidance the targeted facet was localized and positive contrast was injected to con firm intra-articular position. The prescribed medications were injected into the facet joint. The pat ient's pre and post procedure pain levels were recorded. CONCLUSION: Uncomplicated fluoroscopically guided facet injection as above. Jonathan Hollingsworth MD on January 15, 2017 at 17:00 Board Certified Radiologist. This report was verified electronically.
--- NOTE | 2017-01-15 17:05 | RADRPT ---
EXAM DATE/TIME: 01/15/2017 15:26 [facility] COMPARISON: No previous studies available for comparison. INDICATIONS : Patient presents with chronic back pain in need of facet injections for pain management. 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 Contreras October 27, 2016 ENCOUNTER: Subsequent ACUITY: >1 year PAIN SCORE: 5/10 LOCATION: Bilateral Back FLUORO TIME: 3.9 minutes IMAGE SERIES: 2 CONTRAST: 1 cc Omnipaque (iohexol) 300 ACCESS LEVEL: Right L4-L5 MEDICATION(S): 1.) 0.5 cc triamcinolone (Kenalog) IA 2.) 0.5 cc Lidocaine IA RESPONSE: Pre procedure pain level was 5/10. Post procedure pain level was one. PROCEDURE : Fluoroscopically guided facet injection. The risks, benefits and alternatives to the procedure were explained and verbal and written consent w as obtained. The site was prepped in sterile fashion. Full sterile technique was used, including ca p, mask, sterile gloves and gown and a large sterile sheet. Hand hygiene and 2% chlorhexidine and/or betadine/alcohol prep was utilized per protocol for cutaneous antisepsis. The skin and subcutaneous tissues were infiltrated with local anesthetic solution. With fluoroscopic guidance the targeted facet was localized and positive contrast was injected to con firm intra-articular position. The prescribed medications were injected into the facet joint. The pat ient's pre and post procedure pain levels were recorded. CONCLUSION: Uncomplicated fluoroscopically guided facet injection as above. Jonathan Hollingsworth MD on January 15, 2017 at 17:03 Board Certified Radiologist. This report was verified electronically.
== END 2017-01-15 16:24 | disposition home or self-care (01) ==
LOC: HROP 14:06 → HRIP 14:07 → HROP 16:24
PROVIDERS: ATTEND Family Medicine
DX: M54.5 Low back pain (principal)
CPT/HCPCS: 64493; 64494; J3301; Q9967

== ENCOUNTER 2017-07-15 11:51 | Emergency (ER) | payer MEDICARE ==
[~2017-07-15] VITALS: Ht 188 cm; Wt 86.0 kg
[2017-07-15 11:51] VITALS: BP 116/50; PULSE 65; RESP 16; TEMP 97.7; O2SAT 94
[~2017-07-15 11:51] MED LIST changes: -ASPI81CH CHEW; -ATOR1TAB18 PO; +ATOR80TA45 PO; -PRED10PA PO; -VALS160T4 PO; +VITA500T35 PO; -VITA500T49 PO
[2017-07-15] MEDS ORDERED: HYDR-3583 PO (12:31)
[2017-07-15] MEDS ORDERED: DIOV160T3 PO (12:31)
[2017-07-15] MEDS ORDERED: LIPI10TA PO (12:31)
[2017-07-15] MEDS ORDERED: CITA20TA4 PO (12:31)
[2017-07-15] MEDS ORDERED: OMEP40CA2 PO (12:31)
[2017-07-15] MEDS ORDERED: MORPHINE SULFATE 2 MG/ML INJ IM ONE (12:45)
[2017-07-15] MEDS ORDERED: ONDANSETRON ODT 4 MG TAB PO ONE (12:45)
--- NOTE | 2017-07-15 13:25 | PD ---
HPI Chief Complaint: Back/ Neck Pain or Injury Time Seen by Provider: 12:29 Travel History International Travel<30 days: No Contact w/Intl Traveler<30days: No Traveled to known affect area: No History of Present Illness HPI This is 81-year-old male here with low back pain worsening over the last week. He has history of chronic back pain and is followed by Dr. Yuan. He had an MRI done 5 days ago which showed some spurring of L3 and 4. Dr. Yuan treatment plan was to continue Lortab as needed for pain. He denies any recent trauma. No fever or chills. No incontinence or saddle anesthesia. No paresthesia or weakness of the extremity. A sip pain was unrelieved by his Lortabs prompting his visit to the ER. Symptom severity is moderate. Aggravated by movement and relieved with rest. 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) Neurologic: Yes (TIA 05/2016) Psychiatric: No Reproductive: No Respiratory: No Radiation Therapy: No Renal Failure: No Thyroid Disease: No Ulcer: No Influenza Vaccination: Yes Past Surgical History Abdominal Surgery: No AICD: No Arteriovenous Shunt: No Body Medical Devices: NONE Cardiac Surgery: No Ear Surgery: No Endocrine Surgery: No Eye Surgery: Yes (JUDY CATARACT REMOVED , LASIX SURGERY) Genitourinary Surgery: No Gynecologic Surgery: No Insulin Pump: No Joint Replacement: No Oral Surgery: Yes (TONSILLECTOMY/ADENOIDECTOMY) Pacemaker: No Thoracic Surgery: Yes (IMPLANTED PORT INSERTED AND REMOVED) Tonsillectomy: Yes Other Surgery: Yes (BACK SURG' S ) Social History Alcohol Use: Yes (1-2 DRINK A DAY) Tobacco Use: No Substance Use: No Allergies-Medications (Allergen,Severity, Reaction): Coded Allergies: Sulfa (Sulfonamide Antibiotics) (Unverified Allergy, Severe, Anaphylaxis, 2/25/18) SWELLING IN HANDS levofloxacin (Unverified Allergy, Intermediate, SWELLING IN HANDS, 07/15/17 ) Reported Meds & Prescriptions Reported Meds & Active Scripts Active Percocet (Oxycodone-Acetaminophen) 5-325 mg Tab 1-2 Tab PO Q4H PRN Reported Omeprazole 40 Mg Cap 40 Mg PO DAILY Diovan Hct (Valsartan-Hydrochlorothiazide) 160-12.5 Mg Tab 1 Tab PO DAILY Hydrocodone-Acetaminophen 10-325 mg Tab 1 Tab PO Q6H PRN Lipitor (Atorvastatin Calcium) 10 Mg Tab 10 Mg PO 3X WEEKLY Citalopram (Citalopram Hydrobromide) 20 Mg Tab 20 Mg PO DAILY Alendronate (Alendronate Sodium) 70 Mg Tab 70 Mg PO Q7D Eliquis (Apixaban) 5 Mg Tab 5 Mg PO BID Multiple Vitamin 1 Tab 1 Tab PO DAILY Calcium Ascorbate 500 Mg Tab 500 Mg PO DAILY Vitamin D2 (Ergocalciferol) 400 Unit Tab 400 Units PO WEEKLY Review of Systems Except as stated in HPI: all other systems reviewed are Neg General / Constitutional: No: Fever Eyes: No: Visual changes HENT: No: Headaches Cardiovascular: No: Chest Pain or Discomfort Respiratory: No: Shortness of Breath Gastrointestinal: No: Abdominal Pain Genitourinary: No: Dysuria Musculoskeletal: Positive: Pain Skin: No Rash Neurologic: No: Weakness Physical Exam Narrative GENERAL: Alert 81-year-old male lying on his side on the stretcher. No distress. SKIN: Warm and dry. HEAD: Normocephalic. EYES: No injection or drainage. NECK: Supple CARDIOVASCULAR: Regular rate and rhythm RESPIRATORY: Breath sounds equal bilaterally. No accessory muscle use. GASTROINTESTINAL: Abdomen soft, non-tender, nondistended. MUSCULOSKELETAL: No cyanosis, or edema. Normal strength and sensation in lower extremities. BACK: Generalized tenderness over the lumbar spine. Without obvious deformity. No CVA tenderness. Data Data Last Documented VS Vital Signs Date Time Temp Pulse Resp B/P (MAP) Pulse Ox O2 Delivery O2 Flow Rate FiO2 07/15/17 14:43 07/15/17 13:28 72 16 95 07/15/17 11:51 97.7 Orders Orders Morphine Inj (Morphine Inj) (07/15/17 12:45) Ondansetron Odt (Zofran Odt) (07/15/17 12:45) Hydromorphone Pf Inj (Dilaudid Pf Inj) (07/15/17 13:45) Ketorolac Inj (Toradol Inj) (07/15/17 13:45) Hydromorphone Pf Inj (Dilaudid Pf Inj) (07/15/17 13:45) Ed Discharge Order (07/15/17 14:34) MDM Medical Decision Making Medical Screen Exam Complete: Yes Emergency Medical Condition: Yes Differential Diagnosis Lumbago, herniated disc, degenerative disc disease, acute on chronic pain Narrative Course 81-year-old male here with nontraumatic low back pain. He reports the pain is similar to his chronic back pain and in the same location. The pain is simply not relieved with his Lortab prompting his visit today. He recently had an MRI which showed spurring at L3 and L4. He is followed by neurologist Dr. Yuna. He is neurologically intact. I Do not believe further imaging is indicated at this time. He was given a shot of morphine and observed. Patient had minimal improvement after morphine. He was given a shot of Dilaudid and Toradol. On reexam patient reports symptom improvement and is ambulatory. He is requesting discharge. He was offered admission and declined. The plan will be to stop the [place] and start Percocet as needed for pain. Call Dr. Yuan in the morning to schedule a follow-up appointment. Diagnosis Primary Impression: Low back pain Qualified Codes: M54.5 - Low back pain Referrals: Matt Rodriguez MD Additional Instructions: Percocet as needed for pain. Heat and/or ice for comfort. Call neurosurgeon's office tomorrow to schedule appointment for reevaluation this week Scripts Oxycodone-Acetaminophen (Percocet) 5-325 mg Tab 1-2 TAB PO Q4H Y for PAIN, #15 TAB 0 Refills Prov: Veronica Muniz 07/15/17 Disposition: 01 DISCHARGE HOME Condition: Stable Veronica Muniz Jul 15, 2017 13:25
[2017-07-15 13:28] VITALS: BP 96/54; PULSE 72; RESP 16; O2SAT 95
[2017-07-15] MEDS ORDERED: HYDROmorphone HCL PF 2 MG/ML VIAL IM ONE (13:45)
[2017-07-15] MEDS ORDERED: HYDROmorphone HCL PF 1 MG/ML VIAL IM ONE (13:45)
[2017-07-15] MEDS ORDERED: KETOROLAC TROMETHAMINE 60 MG/2 ML (IM) VIAL IM ONE (13:45)
[2017-07-15] MEDS ORDERED: PERC5TAB12 PO (14:32)
== END 2017-07-15 14:44 | disposition home or self-care (01) ==
LOC: PHEFT 11:51
DX: M54.5 Low back pain (principal); M19.90 Unspecified osteoarthritis, unspecified site; F41.9 Anxiety disorder, unspecified; F32.9 Major depressive disorder, single episode, unspecified; K21.9 Gastro-esophageal reflux disease without esophagitis; I10 Essential (primary) hypertension; Z79.899 Other long term (current) drug therapy; Z88.2 Allergy status to sulfonamides; Z88.8 Allergy status to other drugs, medicaments and biological substances
CPT/HCPCS: 96372; 99283; J1170; J1885; J2270